=== PATIENT | male | born 1940 | race Caucasian/White ===

== ENCOUNTER 2021-08-18 08:57 | Outpatient (REF) | payer MEDICARE, BC, SELFPAY ==
[2021-08-18 09:53] LABS: C Reactive Protein 7.84 mg/dL (< or = 0.50)
[2021-08-18 10:13] LABS: Erythrocyte Sedimentation Rate 101 MM/HR (0-15)
== END 2021-08-18 08:58 | disposition home or self-care (01) ==
LOC: HO.LAB 08:57
PROVIDERS: PCP Internal Medicine; Visit Provider Internal Medicine Rheumatology
DX: M35.3 Polymyalgia rheumatica (principal)
CPT/HCPCS: 36415; 85652; 86140

== ENCOUNTER 2021-08-19 12:01 | Outpatient (REF) | payer MEDICARE, BC, SELFPAY ==
[2021-08-19 14:04] LABS: Basophils Percent Auto 0.4 % (0-2); Eosinophils Absolute Auto 0.1 X10*3/uL (0.0-0.4); Eosinophils Percent Auto 1.8 % (0-4); Hematocrit 29.4 % (42.0-52.0); Hemoglobin 9.6 g/dl (14.0-18.0); Imm Gran Abs Auto 0.03 X10*3/uL (0.00-0.03); Imm Gran Pct Auto 0.7 % (0.0-0.4); Lymphocytes Absolute Auto 1.1 X10*3/uL (1.2-4.9); Lymphocytes Percent Auto 24.4 % (20-40); MANUAL DIFF FLAG SCAN; Mean Corpuscular HGB Conc 32.7 g/dl (31.0-36.0); Mean Corpuscular Hemoglobin 30.6 pg (27.0-33.0); Mean Corpuscular Volume 93.6 fL (80.0-98.0); Mean Platelet Volume 9.4 fL (9.4-12.4); Monocytes Absolute Auto 1.1 X10*3/uL (0.1-1.2); Monocytes Percent Auto 23.3 % (2-11); Neutrophils Absolute Auto 2.3 x10*3/uL (2.0-8.3); Neutrophils Percent Auto 49.4 % (45-73); Platelet Count 230 X10*3/uL (160-400); Red Blood Count 3.14 X10*6/uL (4.60-5.80); Red Cell Distribution Width 15.2 % (11.0-16.0); SCAN SMEAR FLAG 1; White Blood Count 4.6 X10*3/uL (4.8-10.8)
[2021-08-19 14:24] LABS: SLIDE REVIEW VERIFIED
[2021-08-22 22:17] LABS: Prot Elec - Albumin 3.8 g/dL (3.8-4.8); Prot Elec - Alpha1 0.4 g/dL (0.2-0.3); Prot Elec - Alpha2 1.2 g/dL (0.5-0.9); Prot Elec - Beta 1 0.4 g/dL (0.4-0.6); Prot Elec - Beta 2 0.3 g/dL (0.2-0.5); Prot Elec - Gamma 1.1 g/dL (0.8-1.7); Prot Elec - Total Protein 7.2 g/dL (6.1-8.1)
== END 2021-08-19 12:02 | disposition home or self-care (01) ==
LOC: HO.HMGCLDS 12:01
PROVIDERS: Visit Provider Internal Medicine Rheumatology
DX: M35.3 Polymyalgia rheumatica (principal); R70.0 Elevated erythrocyte sedimentation rate; Z86.2 Personal history of diseases of the blood and blood-forming organs and certain disorders involving the immune mechanism
CPT/HCPCS: 36415; 84165; 85025

== ENCOUNTER → 2021-11-28 10:25 | Outpatient (BNVA) | payer MEDICARE, BC, SELFPAY | PROVIDERS: PCP Internal Medicine; Visit Provider Internal Medicine Rheumatology | DX: M35.3 Polymyalgia rheumatica (principal); D64.9 Anemia, unspecified; N18.30 Chronic kidney disease, stage 3 unspecified; R70.0 Elevated erythrocyte sedimentation rate | CPT/HCPCS: 99212 ==

== ENCOUNTER → 2022-02-23 09:35 | Outpatient (BNVA) | payer MEDICARE, BC, SELFPAY | PROVIDERS: PCP Internal Medicine; Visit Provider Internal Medicine Rheumatology | DX: M35.3 Polymyalgia rheumatica (principal) | CPT/HCPCS: 99212 ==

== ENCOUNTER 2022-05-15 09:59 | Outpatient (REF) | payer MEDICARE, BC, SELFPAY ==
[2022-05-15 11:32] LABS: MANUAL DIFF FLAG NO
[2022-05-15 11:59] LABS: Basophils Percent Auto 0.5 % (0-2); Eosinophils Absolute Auto 0.1 X10*3/uL (0.0-0.4); Hemoglobin 9.1 g/dl (14.0-18.0); Imm Gran Abs Auto 0.06 X10*3/uL (0.00-0.03); Imm Gran Pct Auto 1.5 % (0.0-0.4); Lymphocytes Absolute Auto 1.3 X10*3/uL (1.2-4.9); Lymphocytes Percent Auto 32.1 % (20-40); Mean Corpuscular HGB Conc 32.5 g/dl (31.0-36.0); Mean Corpuscular Hemoglobin 32.2 pg (27.0-33.0); Mean Corpuscular Volume 98.9 fL (80.0-98.0); Mean Platelet Volume 8.9 fL (9.4-12.4); Monocytes Absolute Auto 0.8 X10*3/uL (0.1-1.2); Monocytes Percent Auto 18.9 % (2-11); Neutrophils Absolute Auto 1.8 x10*3/uL (2.0-8.3); Platelet Count 213 X10*3/uL (160-400); Red Blood Count 2.83 X10*6/uL (4.60-5.80); Red Cell Distribution Width 14.6 % (11.0-16.0)
[2022-05-15 12:04] LABS: C Reactive Protein 1.22 mg/dL (< or = 0.50)
[2022-05-15 12:48] LABS: Erythrocyte Sedimentation Rate 106 MM/HR (0-15)
== END 2022-05-15 10:00 | disposition home or self-care (01) ==
LOC: HO.HMGCLDS 09:59
PROVIDERS: PCP Internal Medicine; Visit Provider Internal Medicine Rheumatology
DX: M35.3 Polymyalgia rheumatica (principal); Z79.899 Other long term (current) drug therapy
CPT/HCPCS: 36415; 85025; 85652; 86140

== ENCOUNTER → 2022-05-17 07:45 | Outpatient (BNVA) | payer MEDICARE, BC, SELFPAY | PROVIDERS: PCP Internal Medicine; Visit Provider Internal Medicine Rheumatology | DX: D64.9 Anemia, unspecified (principal); M35.3 Polymyalgia rheumatica; N18.30 Chronic kidney disease, stage 3 unspecified | CPT/HCPCS: 99212 ==

== ENCOUNTER 2022-10-05 11:14 | Outpatient (REF) | payer MEDICARE, BC, SELFPAY ==
[2022-10-05 13:18] LABS: MANUAL DIFF FLAG NO
[2022-10-05 13:53] LABS: Basophils Percent Auto 0.5 % (0-2); Eosinophils Absolute Auto 0.1 X10*3/uL (0.0-0.4); Eosinophils Percent Auto 1.7 % (0-4); Hematocrit 22.7 % (42.0-52.0); Hemoglobin 7.2 g/dl (14.0-18.0); Imm Gran Abs Auto 0.06 X10*3/uL (0.00-0.03); Imm Gran Pct Auto 1.5 % (0.0-0.4); Mean Corpuscular HGB Conc 31.7 g/dl (31.0-36.0); Mean Corpuscular Hemoglobin 32.7 pg (27.0-33.0); Mean Corpuscular Volume 103.2 fL (80.0-98.0); Mean Platelet Volume 9.3 fL (9.4-12.4); Monocytes Absolute Auto 0.8 X10*3/uL (0.1-1.2); Monocytes Percent Auto 19.1 % (2-11); Neutrophils Absolute Auto 2.2 x10*3/uL (2.0-8.3); Neutrophils Percent Auto 53.2 % (45-73); Platelet Count 270 X10*3/uL (160-400); Red Cell Distribution Width 16.1 % (11.0-16.0); White Blood Count 4.1 X10*3/uL (4.8-10.8)
[2022-10-05 14:17] LABS: C Reactive Protein 4.82 mg/dL (< or = 0.50); Estimated Glomerular Filt Rate 26
[2022-10-05 20:35] LABS: Erythrocyte Sedimentation Rate > 140 MM/HR (0-15)
== END 2022-10-05 11:15 | disposition home or self-care (01) ==
LOC: HO.HMGCLDS 11:14
PROVIDERS: PCP Internal Medicine; Visit Provider Internal Medicine Rheumatology
DX: M35.3 Polymyalgia rheumatica (principal); D64.9 Anemia, unspecified
CPT/HCPCS: 36415; 82565; 85025; 85652; 86140

== ENCOUNTER 2022-10-10 08:11 | Outpatient (AMB) | payer MEDICARE, BC, SELFPAY ==
--- NOTE | 2022-10-10 08:14 | A.OFFVIS_ITS ---
Intake Vital Signs 10/10/22 08:17 Height 5 ft 5 in Weight 180 lb 15.992 oz BMI 30.1 BP 130/62 Blood Pressure Location Lt brachial Position Sitting Pulse 64 Pulse Source Auscultation Temp 97.4 F Temp Source Skin Pulse Oximetry (%) 97 Oxygen Delivery Method Room Air Intake Visit Reasons: pmr Intake Note: Here for PMR follow up. Coal Deliverer Required: No Accompanied by: Self / Same As Patient Allergies No Known Allergies Allergy (Verified 10/10/22 08:14) HPI HPI Comments History of Present Illness Details The patient returns for evaluation of his PMR. He remains at 2 mg daily prednisone. He says he is doing fairly well with no headache, jaw claudication, shoulder pain or hip pain. He does not have any episodic visual disturbance. We did call him last week when his hemoglobin came back at 7.2. This was a decline from his previous 9.9 level. He had just seen the epidemiology investigator and it sounds like there were plans were made to treat him with erythropoietin because of his anemia. His iron levels have been normal. He is feeling somewhat tired but not overwhelmingly so. There has been no shortness of breath, palpitations, ankle edema or chest pain. He did have some crampy abdominal pain and diarrhea on vacation to [place]. He thinks he was exposed t o some agent when he had oysters. His son, felt ill also after the same meal. He says that his GI symptoms are improving at this point. He did see GI and is taking some pantoprazole. [facility] Surgical History History of carpal tunnel release Social History Household Members: Spouse Housing: House Are you a primary youth care specialist to a significant other at home: No Do you presently have visiting nurse or other home services: No 75 years or older and lives alone: No Patient Tobacco Use Status: Former Tobacco user Years Smoked: Quit 35 years ago e-Cigarette/Vaping Use: Never Used service: No Current occupational status: retired Review of Systems Const Details: Negative for appetite change, weight change, fever, chills, malaise and fatigue Eyes Details: Negative for vision change, dry eyes,headaches and dizziness Card Details: Negative chest pain, edema and syncope Resp Details: Negative for SOB, cough and wheezing GI Details: Episode of crampy abdominal pain and loose stools has subsided. Negative indigestion/heartburn, nausea, bowel changes, her constipation and bloody stool. Endo Details: Negative for polyuria and polydypsia Fernando/Lymph Details: Negative for excessive bruising or bleeding. Physical Exam Vital Signs: Last Vital Signs Temp 97.4 F 10/10/22 08:17 Pulse 64 10/10/22 08:17 BP 130/62 10/10/22 08:17 Pulse Ox 97 10/10/22 08:17 Oxygen Delivery Method Room Air 10/10/22 08:17 BMI result Body Mass Index 30.1 APPEARANCE: Patient in no acute distress EYES no redness, pupils equal and reactive to light, eyelids normal. No temporal artery tenderness, redness or swelling. Abdomen: Normal bowel sounds. No organomegaly or tenderness. EXTREMITIES:? No edema, no calf tenderness, normal peripheral pulses. JOINT EXAM:?? Cervical Spine:.? Some?decrease in motion?without pain; no tenderness. Thoracic Spine:.? No scoliosis.? No tenderness on palpation. Lumbar Spine:.? Alignment normal.? Full range of motion without pain, no tenderness. Chest Wall:.? No tenderness, swelling, increased warmth or erythema. Hands:.? Normal pain-free range of motion without tenderness, swelling, increased warmth or erythema. Able to make a full fist and has a good leasing associate strength. Wrists:.? Flexion and extension limited at about 60 degrees but without pain.? No tenderness.? No swelling, increased warmth or erythema. Elbows:. Normal pain-free range of motion without tenderness, swelling, increased warmth or erythema. Shoulders:.? Left:? Abduction is limited to about 150 degrees but rotation seems normal.? No pain with motion, tenderness, swelling or weakness.? Right:? Full range of motion without pain. No tenderness, weakness, swelling, increased warmth or erythema. Hips:.? Full range of motion without pain. Hip bursa:.? No tenderness. Knees:.?? Normal pain-free range of motion with slight patellofemoral crepitus but no effusion, tenderness, swelling, increased warmth or erythema.? There is no effusion or crepitation Ankles:? Normal pain-free range of motion without tenderness, swelling, increased warmth or erythema. ? Results Reviewed Results Reviewed: Laboratory Tests 05/15/22 10/05/22 10/05/22 10:04 11:21 11:21 WBC 4.1 L Hgb 9.1 L 7.2 L D Plt Count 270 D ESR > 140 H Creatinine C-Reactive Protein 10/05/22 11:21 WBC Hgb Plt Count ESR Creatinine 2.36 H C-Reactive Protein 4.82 H Assessment & Plan Assessment & Plan (1) Anemia: Comment: IRon B12 levels OK. ? anemia of chronic disease Code(s): D64.9 - Anemia, unspecified (2) CKD (chronic kidney disease) stage 3, GFR 30-59 ml/min: Comment: with proteinuria Code(s): N18.30 - Chronic kidney disease, stage 3 unspecified (3) Polymyalgia rheumatica: Comment: onset 2019? Code(s): M35.3 - Polymyalgia rheumatica Plan PMR with no apparent symptoms at this very low dose of prednisone. The acute phase reactants remain elevated, perhaps even higher because of the recent GI symptoms he had at [facility]. Alternatively that could be some pathological process in the bone marrow that is causing his significant anemia but most likely it is at least partially contributed by his CKD. We will stay with the current dose of prednisone for now. He is to follow-up as planned with Nephrology and Hematology. Coding Level of Care Code Est Pt Level 3 (94691) Diagnoses Anemia D64.9 CKD (chronic kidney disease) stage 3, GFR 30-59 ml/min N18.30 Polymyalgia rheumatica M35.3
[2022-10-10 08:17] VITALS: BP 130/62; PULSE 64; TEMP 36.3; O2SAT 97; BMI 30.1
== END 2022-10-10 09:25 | disposition home or self-care (01) ==
PROVIDERS: PCP Internal Medicine; Visit Provider Internal Medicine Rheumatology
DX: D64.9 Anemia, unspecified (principal); N18.30 Chronic kidney disease, stage 3 unspecified; M35.3 Polymyalgia rheumatica
CPT/HCPCS: 99213

== ENCOUNTER → 2022-10-10 08:11 | Outpatient (BNVA) | payer MEDICARE, BC, SELFPAY | PROVIDERS: PCP Internal Medicine; Visit Provider Internal Medicine Rheumatology | DX: M35.3 Polymyalgia rheumatica (principal); N18.30 Chronic kidney disease, stage 3 unspecified; D64.9 Anemia, unspecified | CPT/HCPCS: 99212 ==

== ENCOUNTER 2023-04-20 10:36 | Outpatient (AMB) | payer MEDICARE, BC, SELFPAY ==
--- NOTE | 2023-04-20 10:43 | MHC.OFFVIS ---
Intake Vital Signs 04/20/23 10:50 Height 5 ft 5 in Weight 177 lb 7.554 oz BMI 29.5 BP 140/60 H Blood Pressure Location Rt brachial Position Sitting Pulse 54 Pulse Source Pulse Oximeter Temp 97 F Temp Source Skin Pulse Oximetry (%) 97 Oxygen Delivery Method Room Air Intake Visit Reasons: PMR Intake Note: Last seen by Dr. Howard on 10/10/22. Presents today for follow up. Sound Assistant Required: No Accompanied by: Self / Same As Patient Allergies No Known Allergies Allergy (Verified 10/10/22 08:14) HPI HPI Comments History of Present Illness Details Mr. Stewart 82-year-old male returns for evaluation of his PMR. He remains at 2 mg daily prednisone. He says he is doing fairly well with no headache, jaw claudication, shoulder pain or hip pain except recently with the rainy weather he has some discomfort in the right shoulder joint. He does not have any episodic visual disturbance. He has not seen the belt loop maker but he sees the vault worker who treats him with erythropoietin because of his anemia. He has received 4 injections so far. He is feeling somewhat tired but not overwhelmingly so. There has been no shortness of breath, palpitations, ankle edema or chest pain. The patient denies any personal history of cancer. [facility] Medical History (Updated 04/20/23 @ 12:05 by W[facility]Y [facility] History of gout CKD (chronic kidney disease) stage 4, GFR 15-29 ml/min Surgical History History of carpal tunnel release Social History Household Members: Spouse Housing: House Are you a primary health care marketing manager to a significant other at home: No Do you presently have visiting nurse or other home services: No 75 years or older and lives alone: No Patient Tobacco Use Status: Former Tobacco user Years Smoked: Quit 35 years ago e-Cigarette/Vaping Use: Never Used service: No Current occupational status: retired Review of Systems Const All systems reviewed & are unremarkable except as noted in HPI and below Physical Exam Vital Signs: Last Vital Signs Temp 97 F 04/20/23 10:50 Pulse 54 04/20/23 10:50 BP 140/60 H 04/20/23 10:50 Pulse Ox 97 04/20/23 10:50 Oxygen Delivery Method Room Air 04/20/23 10:50 BMI result Body Mass Index 29.5 Results Reviewed Results Reviewed: Laboratory Tests 05/15/22 10/05/22 10/05/22 10:04 11:21 11:21 WBC 4.1 L Hgb 9.1 L 7.2 L D Plt Count 270 D ESR > 140 H Creatinine C-Reactive Protein 10/05/22 11:21 WBC Hgb Plt Count ESR Creatinine 2.36 H C-Reactive Protein 4.82 H Assessment & Plan Assessment & Plan (1) Anemia: Comment: IRon B12 levels OK. ? anemia of chronic disease Code(s): D64.9 - Anemia, unspecified Qualifiers: Anemia type: due to chronic kidney disease Chronic kidney disease stage: stage 4 (severe) Qualified Code(s): N18.4 - Chronic kidney disease, stage 4 (severe); D63.1 - Anemia in chronic kidney disease (2) Polymyalgia rheumatica: Comment: onset 2019? Code(s): M35.3 - Polymyalgia rheumatica (3) CKD (chronic kidney disease) stage 4, GFR 15-29 ml/min: Code(s): N18.4 - Chronic kidney disease, stage 4 (severe) (4) History of gout: Code(s): Z87.39 - Personal history of other diseases of the musculoskeletal system and connective tissue Plan #PMR:PMR with no apparent symptoms at this very low dose of prednisone 2mg per day. Patient is not symptomatic for PMR. The acute phase reactants remain markedly elevated. Perhaps because of his chronic anemia, which most likely, or at least partially, contributed by his CKD. We will stay with the current dose of prednisone for now. Labs were ordered on 04/16/2023 with the goal to have them before the appointment. Reminded patient to get those done. #Hx of Gout: Patient is on allopurinol 200 mg q.d.. Says he has not had a gout flare in years. He did discuss with his primary care coleman he taking it still and per patient his PCP says to continue. #Anemia/CKD: Given his chronic kidney disease and anemia I would recommend to discontinue his allopurinol or at least to reduce the dose. He is to continue with Nephrology thank you I spent 35 minutes reviewing history, evaluating patient and documenting. Coding Level of Care Code Est Pt Level 3 (13368) Diagnoses Anemia due to stage 4 chronic kidney disease N18.4; D63.1 Anemia type: due to chronic kidney disease Chronic kidney disease stage: stage 4 (severe) Polymyalgia rheumatica M35.3 CKD (chronic kidney disease) stage 4, GFR 15-29 ml/min N18.4 History of gout Z87.39
[2023-04-20 10:50] VITALS: BP 140/60; PULSE 54; TEMP 36.1; O2SAT 97; BMI 29.5
== END 2023-04-20 11:09 | disposition home or self-care (01) ==
PROVIDERS: PCP Internal Medicine; Visit Provider Nurse Practitioner Family
DX: N18.4 Chronic kidney disease, stage 4 (severe) (principal); D63.1 Anemia in chronic kidney disease; M35.3 Polymyalgia rheumatica; Z87.39 Personal history of other diseases of the musculoskeletal system and connective tissue
CPT/HCPCS: 99213

== ENCOUNTER → 2023-04-20 10:36 | Outpatient (BNVA) | payer MEDICARE, BC, SELFPAY | PROVIDERS: PCP Internal Medicine; Visit Provider Nurse Practitioner Family | DX: N18.4 Chronic kidney disease, stage 4 (severe) (principal); D63.1 Anemia in chronic kidney disease; M35.3 Polymyalgia rheumatica; Z87.39 Personal history of other diseases of the musculoskeletal system and connective tissue | CPT/HCPCS: 99212 ==

== ENCOUNTER 2023-04-23 09:48 | Outpatient (REF) | payer MEDICARE, BC, SELFPAY ==
[2023-04-23 13:23] LABS: Rheumatoid Factor 66.4 IU/mL (<15.0)
[2023-04-23 13:26] LABS: Basophils Percent Auto 0.6 % (0-2); Eosinophils Absolute Auto 0.1 X10*3/uL (0.0-0.4); Eosinophils Percent Auto 1.6 % (0-4); Hemoglobin 8.8 g/dl (14.0-18.0); Imm Gran Abs Auto 0.04 X10*3/uL (0.00-0.03); Imm Gran Pct Auto 1.3 % (0.0-0.4); Lymphocytes Absolute Auto 1.1 X10*3/uL (1.2-4.9); Lymphocytes Percent Auto 35.8 % (20-40); MANUAL DIFF FLAG SCAN; Mean Corpuscular HGB Conc 32.6 g/dl (31.0-36.0); Mean Corpuscular Volume 104.2 fL (80.0-98.0); Mean Platelet Volume 9.7 fL (9.4-12.4); Monocytes Absolute Auto 0.7 X10*3/uL (0.1-1.2); Monocytes Percent Auto 22.4 % (2-11); Neutrophils Absolute Auto 1.2 x10*3/uL (2.0-8.3); Neutrophils Percent Auto 38.3 % (45-73); Platelet Count 198 X10*3/uL (160-400); Red Blood Count 2.59 X10*6/uL (4.60-5.80); Red Cell Distribution Width 15.4 % (11.0-16.0); SCAN SMEAR FLAG 1; White Blood Count 3.1 X10*3/uL (4.8-10.8)
[2023-04-23 13:38] LABS: C Reactive Protein 3.84 mg/dL (< or = 0.50); Uric Acid 4.5 mg/dL (3.4-7.0)
[2023-04-23 13:48] LABS: SLIDE REVIEW VERIFIED
[2023-04-23 14:15] LABS: Erythrocyte Sedimentation Rate 109 MM/HR (0-15)
[2023-04-24 21:34] LABS: Prot Elec - Albumin 3.7 g/dL (3.8-4.8); Prot Elec - Alpha1 0.4 g/dL (0.2-0.3); Prot Elec - Beta 1 0.4 g/dL (0.4-0.6); Prot Elec - Beta 2 0.3 g/dL (0.2-0.5); Prot Elec - Gamma 1.6 g/dL (0.8-1.7); Prot Elec - Total Protein 7.3 g/dL (6.1-8.1)
[2023-04-25 11:23] LABS: Cyclic Citrullinated Peptide <16 UNITS
[2023-04-25 22:19] LABS: IgA 168 mg/dL (70-320); IgG 1260 mg/dL (600-1540); IgM 841 mg/dL (50-300)
== END 2023-04-23 09:49 | disposition home or self-care (01) ==
LOC: HO.HMGCLDS 09:48
PROVIDERS: PCP Internal Medicine; Visit Provider Nurse Practitioner Family
DX: M35.3 Polymyalgia rheumatica (principal); R70.0 Elevated erythrocyte sedimentation rate
CPT/HCPCS: 36415; 82784; 84165; 84550; 85025; 85652; 86140; 86200; 86431

== ENCOUNTER 2023-12-20 09:36 | Outpatient (AMB) | payer MEDICARE, BC, SELFPAY ==
[2023-12-20 09:41] VITALS: BP 130/72; PULSE 80; O2SAT 98; BMI 31.9
--- NOTE | 2023-12-20 09:41 | A.OFFVIS_ITS ---
Vital Signs 12/20/23 09:41 Height 5 ft 5 in Weight 192 lb BMI 31.9 BP 130/72 Blood Pressure Location Lt brachial Position Sitting Pulse 80 Pulse Source Pulse Oximeter Pulse Oximetry (%) 98 Oxygen Delivery Method Room Air Intake Visit Reasons: PMR. Intake Note: Patient presents for follow up on PMR. He was last seen in the office on 04/20/23 by Ibeth Barnes. Patient is requesting refill of Prednisone at this time. Allergies No Known Allergies Allergy (Verified 12/20/23 09:43) Medication List - Last Reconciled 12/20/23 by Bonita Moya MD acetaminophen (Tylenol Extra Strength) 1,000 mg PO BEDTIME PRN allopurinol 100 mg PO BID amlodipine 5 mg PO DAILY atenolol 25 mg PO DAILY ferrous sulfate 325 mg PO DAILY glipizide 5 mg PO .dinner glipizide ER 0 mg PO lisinopril 20 mg PO DAILY metformin ER 1,000 mg PO BID ondansetron HCl 4 mg PO Q8H PRN pantoprazole 40 mg PO DAILY prednisone 2 mg (2 x 1 mg) PO DAILY sitagliptin phosphate (Januvia) 100 mg PO DAILY tamsulosin 0.4 mg PO BEDTIME HPI Comments Details: Patient is an 83-year-old male with hypertension, diabetes, BPH, PMR on chronic prednisone and gout who presents for follow-up Interval History: Patient last seen 04/20/2023 with Ibeth Barnes. At that time patient was stable. There was concern about his anemia. No changes made to his prednisone Today patient reports continue resolution of his shoulder stiffness. Follows with renal for EPO shots weekly for his anemia. Denies headaches, jaw claudication, temporal artery tenderness, vision changes Rheumatologic History: Diagnosed with PMR in 2019 and started on prednisone with complete resolution of symptoms. Has been slowly tapering prednisone over the past several years. No relapse in symptoms. Non crystal proven gout on allopurinol Current Rheumatology Medication(s): Allopurinol 100mg bid Prednisone 2mg daily PFSH Medical History (Updated 12/20/23 @ 10:37 by Bonita Moya MD) Gout Cardiac murmur CKD (chronic kidney disease) stage 4, GFR 15-29 ml/min Surgical History History of carpal tunnel release Social History Household Members: Spouse Housing: House Are you a primary healthcare manager to a significant other at home: No Do you presently have visiting nurse or other home services: No Patient Tobacco Use Status: Former Tobacco user Years Smoked: Quit 35 years ago e-Cigarette/Vaping Use: Never Used service: No Current occupational status: retired Review of Systems Const Details: Review of Systems Constitutional: Denies fever, chills, weight loss ENT: Denies vision changes, eye pain or eye redness, dental caries, dry mouth GI: Denies nausea, vomiting, diarrhea, abdominal pain, change in BM Pulm: Denies SOB, VARGAS, hemoptysis, wheezing Cards: Denies chest pain, palpitations Skin: Denies Raynaud's, rash, nail changes, photosensitivity, BETTING AGENCY MANAGER: Denies headaches, weakness, paresthesias, recurrent falls MSK: as per HPI All other systems reviewed and are unremarkable except noted above Physical Exam Vital Signs: Last Vital Signs Pulse 80 12/20/23 09:41 BP 130/72 12/20/23 09:41 Pulse Ox 98 12/20/23 09:41 Oxygen Delivery Method Room Air 12/20/23 09:41 BMI result Body Mass Index 31.9 Physical Examination CONSTITUITIONAL Patient alert and cooperative. Well appearing and in no apparent painful distress HEENT Conjunctiva and sclera clear. ?Pupils equal round and reactive to light. ?No lymphadenopathy. ?Normal dentition. No oral or nasal ulcers noted. No temporal artery tenderness noted CHEST/RESPIRATORY SYSTEM Normal respiratory effort and able to speak in complete sentences. ?Clear to auscultation bilaterally. ?No crackles, rales, rhonchi, wheezes heard. CARDIAC SYSTEM Regular rate irregularly irregular rhythm. Systolic murmur 3/6 heard best at the left sternal border MSK Hands: ?Good journeyman press operator strength bilaterally - 5/5. ?No deformities noted. ?No synovitis noted to the MCPs, PIPs or DIPs. ?No tenderness to palpation of these joints. Wrists: ?Full range of motion at the wrists without pain. ?No tenderness to palpation or synovitis noted to the wrists. Elbows: Full range of motion without pain. No tenderness, weakness, swelling, increased warmth or erythema. Shoulders: Full range of motion without pain. No tenderness, weakness, swelling, increased warmth or erythema. Hips: Full range of motion without pain. Hip bursa: No tenderness to palpation Knees: ?Full range of motion. ?No tenderness, swelling, increased warmth or erythema.?No effusion or crepitations Ankles: Full range of motion. ?No tenderness, swelling, increased warmth or erythema.? Feet: ?Negative squeeze test. ?No tenderness to palpation or swelling of the MTPs. Tender points:??No tenderness to palpation of the neck, shoulders, chest, elbows, hips, buttocks or knees. SKIN Skin intact without rashes. Assessment & Plan Assessment & Plan (1) Polymyalgia rheumatica: Comment: onset 2019? Prednisone since 2019 Code(s): M35.3 - Polymyalgia rheumatica Category: Medical Plan: #PMR Patient with PMR currently is in remission. We will decrease his prednisone to 1 mg and follow him up in 3 months. No signs or symptoms concerning for GCA (2) ESR raised: Code(s): R70.0 - Elevated erythrocyte sedimentation rate Category: Medical Plan: #Elevated ESR and CRP Patient with elevated ESR and CRP that has been persistent despite resolution of his PMR symptoms. He reports having follow up with the distillery worker general in the past but I am unable to see this workup. Concerned that he may monoclonal gamm opathy. 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 He has a history of following up with Rudy Mckinley distillery worker general but his anemia in the past has been attributed to his CKD. He started EPO injections in the spring of this year but the anemia related to chronic kidney disease is normocytic and his anemia is macrocytic with a normal B12 which is concerning for MDS. We will reach out to Rudy Mckinley to discuss the case. (4) Cardiac murmur: Code(s): R01.1 - Cardiac murmur, unspecified Category: Medical Plan: #Systolic Murmur Patient has a systolic murmur on examination. As well as irregular heartbeat. Send patient to get a EKG and he says he has a scheduled for an echo next month. Plan I spent 45 minutes reviewing the record and labs, seeing the patient, discussing the treatment plan, contacting Rudy Mckinley Manager Cardiac Cath and discussing the case, and documenting in the medical record ? For next visit: * Follow-up prednisone decreased Orders: Orders Cyclic Citrullinated Peptide Today D63.1 - Anemia in chronic kidney disease, M35.3 - Polymyalgia rheumatica, N18.30 - Chronic kidney disease, stage 3 unspecified, N18.4 - Chronic kidney disease, stage 4 (severe) Complete Blood Count Auto Diff Today D63.1 - Anemia in chronic kidney disease, M35.3 - Polymyalgia rheumatica, N18.30 - Chronic kidney disease, stage 3 unspecified, N18.4 - Chronic kidney disease, stage 4 (severe) Complement C3 Today D63.1 - Anemia in chronic kidney disease, M35.3 - Polymyalgia rheumatica, N18.30 - Chronic kidney disease, stage 3 unspecified, N18.4 - Chronic kidney disease, stage 4 (severe) Anti Extractable Nuclear Ag Today D63.1 - Anemia in chronic kidney disease, M 35.3 - Polymyalgia rheumatica, N18.30 - Chronic kidney disease, stage 3 unspecified, N18.4 - Chronic kidney disease, stage 4 (severe) Erythrocyte Sedimentation Rate Today D63.1 - Anemia in chronic kidney disease, M35.3 - Polymyalgia rheumatica, N18.30 - Chronic kidney disease, stage 3 unspecified, N18.4 - Chronic kidney disease, stage 4 (severe) Protein Electrophoresis,Ran Ur Today D63.1 - Anemia in chronic kidney disease, M35.3 - Polymyalgia rheumatica, N18.30 - Chronic kidney disease, stage 3 unspecified, N18.4 - Chronic kidney disease, stage 4 (severe) Uric Acid Today D63.1 - Anemia in chronic kidney disease, M35.3 - Polymyalgia rheumatica, N18.30 - Chronic kidney disease, stage 3 unspecified, N18.4 - Chron ic kidney disease, stage 4 (severe) Folate Today D63.1 - Anemia in chronic kidney disease, M35.3 - Polymyalgia rheumatica, N18.30 - Chronic kidney disease, stage 3 unspecified, N18.4 - Chronic kidney disease, stage 4 (severe) Vitamin D 25-OH (D2 and D3) Today D63.1 - Anemia in chronic kidney disease, M35.3 - Polymyalgia rheumatica, N18.30 - Chronic kidney disease, stage 3 unspecified, N18.4 - Chronic kidney disease, stage 4 (severe) ECG 12 lead EKG Today R00.9 - Unspecified abnormalities of heart beat Rheumatoid Factor Today D63.1 - Anemia in chronic kidney disease, M35.3 - Polymyalgia rheumatica, N18.30 - Chronic kidney disease, stage 3 unspecified, N18.4 - Chronic kidney disease, stage 4 (severe) Complement C4 Today D63.1 - Anemia in chronic kidney disease, M35.3 - Polymyalgia rheumatica, N18.30 - Chronic kidney disease, stage 3 unspecified, N18.4 - Chronic kidney disease, stage 4 (severe) MILO Reflex Titer and Pattern Today D63.1 - Anemia in chronic kidney disease, M35.3 - Polymyalgia rheumatica, N18.30 - Chronic kidney disease, stage 3 unspecified, N18.4 - Chronic kidney disease, stage 4 (severe) Comprehensive Met. Panel Today D63.1 - Anemia in chronic kidney disease, M35.3 - Polymyalgia rheumatica, N18.30 - Chronic kidney disease, stage 3 unspecified, N18.4 - Chronic kidney disease, stage 4 (severe) C Reactive Protein Today D63.1 - Anemia in chronic kidney disease, M35.3 - Polymyalgia rheumatica, N18.30 - Chronic kidney disease, stage 3 unspecified, N18.4 - Chronic kidney disease, stage 4 (severe) Protein Electrophoresis, Serum Today D63.1 - Anemia in chronic kidney disease, M35.3 - Polymyalgia rheumatica, N18.30 - Chronic kidney disease, stage 3 unspecified, N18.4 - Chronic kidney disease, stage 4 (severe) Immunofixation, Random Urine Today D63.1 - Anemia in chronic kidney disease, M35.3 - Polymyalgia rheumatica, N18.30 - Chronic kidney disease, stage 3 unspecified, N18.4 - Chronic kidney disease, stage 4 (severe) Immunoglobulins,IgG IgA IgM Today D63.1 - Anemia in chronic kidney disease, M35.3 - Polymyalgia rheumatica, N18.30 - Chronic kidney disease, stage 3 u nspecified, N18.4 - Chronic kidney disease, stage 4 (severe) Immunofixation Pnl, Serum Today D63.1 - Anemia in chronic kidney disease, M35.3 - Polymyalgia rheumatica, N18.30 - Chronic kidney disease, stage 3 unspecified, N18.4 - Chronic kidney disease, stage 4 (severe) Vitamin B12 Today D63.1 - Anemia in chronic kidney disease, M35.3 - Polymyalgia rheumatica, N18.30 - Chronic kidney disease, stage 3 unspecified, N18.4 - Chronic kidney disease, stage 4 (severe) Medications: New allopurinol 100 mg PO BID 180 tabs 2RF M10.9 - Gout, unspecified Changed From prednisone 2 mg (2 x 1 mg) PO DAILY 60 tabs 2RF M35.3 - Polymyalgia rheumatica To prednisone 1 mg PO DAILY 90 days 90 tabs 1RF M35.3 - Polymyalgia rheumatica Coding Level of Care Code Est Pt Level 5 (19718) Complex EM visit Add On G2211 Diagnoses Polymyalgia rheumatica M35.3 ESR raised R70.0 Bicytopenia D75.89 Cardiac murmur R01.1
== END 2023-12-20 10:30 | disposition home or self-care (01) ==
LOC: HO.RHE 09:37
PROVIDERS: PCP Internal Medicine; Visit Provider Student in an Organized Health Care Education/Training Program
DX: M35.3 Polymyalgia rheumatica (principal); R70.0 Elevated erythrocyte sedimentation rate; D75.89 Other specified diseases of blood and blood-forming organs; R01.1 Cardiac murmur, unspecified
CPT/HCPCS: 99215; G2211

== ENCOUNTER → 2023-12-20 09:36 | Outpatient (BNVA) | payer MEDICARE, BC, SELFPAY | PROVIDERS: PCP Internal Medicine; Visit Provider Student in an Organized Health Care Education/Training Program ==

== ENCOUNTER 2023-12-20 10:27 | Outpatient (REF) | payer MEDICARE, BC, SELFPAY ==
[2023-12-20 10:53] LABS: Basophils Percent Auto 0.3 % (0-2); Eosinophils Percent Auto 0.6 % (0-4); Hematocrit 26.2 % (42.0-52.0); Imm Gran Abs Auto 0.09 X10*3/uL (0.00-0.03); Imm Gran Pct Auto 2.8 % (0.0-0.4); MANUAL DIFF FLAG SCAN; Mean Corpuscular HGB Conc 34.4 g/dl (31.0-36.0); Mean Corpuscular Hemoglobin 35.2 pg (27.0-33.0); Mean Corpuscular Volume 102.3 fL (80.0-98.0); Mean Platelet Volume 8.8 fL (9.4-12.4); Monocytes Absolute Auto 0.8 X10*3/uL (0.1-1.2); Monocytes Percent Auto 24.2 % (2-11); Neutrophils Absolute Auto 1.3 x10*3/uL (2.0-8.3); Neutrophils Percent Auto 40.1 % (45-73); Platelet Count 114 X10*3/uL (160-400); Red Blood Count 2.56 X10*6/uL (4.60-5.80); Red Cell Distribution Width 14.8 % (11.0-16.0); SCAN SMEAR FLAG 1; White Blood Count 3.2 X10*3/uL (4.8-10.8)
[2023-12-20 11:24] LABS: SLIDE REVIEW VERIFIED
[2023-12-20 11:33] LABS: Erythrocyte Sedimentation Rate 119 MM/HR (0-15)
[2023-12-20 12:07] LABS: Alanine Aminotransferase 25 U/L (0-40); Albumin Level 4.1 g/dL (3.5-5.0); Alkaline Phosphatase 68 U/L (39-117); Anion Gap 15 (12-20); Aspartate Amino Transferase 25 U/L (5-37); Bilirubin Total 0.4 mg/dL (0.0-1.0); Blood Urea Nitrogen 46 mg/dL (9-16); C Reactive Protein 0.91 mg/dL (< or = 0.50); Calcium 9.5 mg/dL (8.4-10.2); Carbon Dioxide 21 mmol/L (22-29); Chloride 110 mmol/L (96-108); Estimated Glomerular Filt Rate 29; Glucose Random 182 mg/dL (60-115); Potassium 4.5 mmol/L (3.3-5.1); Sodium 141 mmol/L (135-145); Total Protein 7.8 g/dL (6.5-8.0); Uric Acid 5.8 mg/dL (3.4-7.0)
[2023-12-20 12:14] LABS: Rheumatoid Factor 18.1 IU/mL (<15.0)
[2023-12-20 12:49] LABS: Folate > 20.0 ng/mL (> or = 4.0); Vitamin B12 343 pg/mL (200-900)
[2023-12-21 12:37] LABS: PES - Abn Protein Band 1 0.2 g/dL (NONE DETECTED); Prot Elec - Albumin 4.1 g/dL (3.8-4.8); Prot Elec - Alpha1 0.3 g/dL (0.2-0.3); Prot Elec - Alpha2 0.8 g/dL (0.5-0.9); Prot Elec - Beta 1 0.4 g/dL (0.4-0.6); Prot Elec - Beta 2 0.3 g/dL (0.2-0.5); Prot Elec - Gamma 1.5 g/dL (0.8-1.7); Prot Elec - Total Protein 7.4 g/dL (6.1-8.1)
[2023-12-21 14:33] LABS: Complement C3 89 mg/dL
[2023-12-21 20:49] LABS: SM/Ribonucleoprotein Ab <1.0 NEG AI (<1.0 NEG); Smith Protein <1.0 NEG AI (<1.0 NEG)
[2023-12-21 21:32] LABS: IgA 155 mg/dL (70-320); IgG 1036 mg/dL (600-1540); IgM 1159 mg/dL (50-300)
[2023-12-24 16:48] LABS: Vitamin D 25-OH, D2 <4 ng/mL; Vitamin D 25-OH, D3 28 ng/mL; Vitamin D 25-OH, Total 28 ng/mL (30-100)
[2023-12-25 09:19] LABS: Cyclic Citrullinated Peptide <16 UNITS
[2023-12-25 11:33] LABS: Anti Nuclear Antibody Screen NEGATIVE (NEGATIVE)
== END 2023-12-20 10:28 | disposition home or self-care (01) ==
LOC: HO.10HDL 10:27
PROVIDERS: Visit Provider Student in an Organized Health Care Education/Training Program
DX: M35.3 Polymyalgia rheumatica (principal); N18.30 Chronic kidney disease, stage 3 unspecified; N18.4 Chronic kidney disease, stage 4 (severe); D63.1 Anemia in chronic kidney disease; R70.0 Elevated erythrocyte sedimentation rate; R01.1 Cardiac murmur, unspecified; D75.89 Other specified diseases of blood and blood-forming organs; M10.9 Gout, unspecified; Z79.899 Other long term (current) drug therapy
CPT/HCPCS: 36415; 80053; 82306; 82607; 82746; 82784; 84165; 84550; 85025; 85652; 86038; 86140; 86160; 86200; 86235; 86334; 86431; 99212

== ENCOUNTER 2024-04-18 10:53 | Outpatient (AMB) | payer MEDICARE, BC, SELFPAY ==
--- NOTE | 2024-04-18 11:00 | MHC.OFFVIS ---
Vital Signs 04/18/24 11:03 Height 5 ft 5 in Weight 190 lb 14.725 oz BMI 31.8 BP 150/80 H Blood Pressure Location Lt brachial Position Sitting Pulse 67 Pulse Source Pulse Oximeter Pulse Oximetry (%) 96 Oxygen Delivery Method Room Air Intake Visit Reasons: follow up Intake Note: Patient presents for follow up. Allergies No Known Allergies Allergy (Verified 04/18/24 11:03) Medication List - Last Reconciled 04/18/24 by Bonita Moya MD acetaminophen (Tylenol Extra Strength) 1,000 mg PO BEDTIME PRN allopurinol 100 mg PO BID amlodipine 5 mg PO DAILY atenolol 25 mg PO DAILY ferrous sulfate 325 mg PO DAILY glipizide 5 mg PO .dinner glipizide ER 0 mg PO lisinopril 20 mg PO DAILY metformin ER 1,000 mg PO BID ondansetron HCl 4 mg PO Q8H PRN pantoprazole 40 mg PO DAILY prednisone 1 mg PO DAILY 90 days sitagliptin phosphate (Januvia) 100 mg PO DAILY tamsulosin 0.4 mg PO BEDTIME HPI Comments Details: Patient is an 83-year-old male with hypertension, diabetes, BPH, PMR on chronic prednisone and gout who presents for follow-up Interval History: Patient last seen 12/20/2023 with me. At that time he was stable with respect to his PMR symptoms and had not had any flares of his gout. His follow up blood work was concerning for pancytopenia with hemoglobin 9, white blood cell count 3.2, platelets 114. I also sent serum protein electrophoresis and immunofixation which showed a faint monoclonal band. I informed the patient of his concerning blood results and told him that he would need to see a cassandra consultant. The referral was placed to his cassandra consultant Dr. Rudy Mckinley and patient ensured that he would follow up. Today patient states that he made the appointment however did not go because he had COVID and did not make a follow up appointment for the appointment that he missed. When I discussed this with him he continues to iterate that he is currently following up with his early childhood education worker for his blood count and he is getting weekly shots and so he does not see the need to follow up with the cassandra consultant. I again told him that the shots that he is receiving from the hematologists are likely EPO shots and they are only for his anemia it would not explain his low white blood cell count or his low platelets. It would also not explain the abnormal protein that is in his blood. With respect to his PMR symptoms patient notes that he has been feeling a little bit more achy on the 1 mg pill compared to the 2 mg pill however it has not been persistent. No signs or symptoms of GCA No gout flares Rheumatologic History: Diagnosed with PMR in 2019 and started on prednisone with complete resolution of symptoms. Has been slowly tapering prednisone over the past several years. No relapse in symptoms. Non crystal proven gout on allopurinol Current Rheumatology Medication(s): Allopurinol 100mg bid Prednisone 1mg daily [facility] Medical History (Updated 12/20/23 @ 13:55 by Bonita Moya MD) Pancytopenia Gout Cardiac murmur CKD (chronic kidney disease) stage 4, GFR 15-29 ml/min Surgical History History of carpal tunnel release Social History Household Members: Spouse Housing: House Are you a primary healthcare representative to a significant other at home: No Do you presently have visiting nurse or other home services: No 75 years or older and lives alone: No Patient Tobacco Use Status: Former Tobacco user Years Smoked: Quit 35 years ago e-Cigarette/Vaping Use: Never Used service: No Current occupational status: retired Review of Systems Const Details: Review of Systems Constitutional: Denies fever, chills, weight loss ENT: Denies vision changes, eye pain or eye redness, dental caries, dry mouth GI: Denies nausea, vomiting, diarrhea, abdominal pain, change in BM Pulm: Denies SOB, VARGAS, hemoptysis, wheezing Cards: Denies chest pain, palpitations Skin: Denies Raynaud's, rash, nail changes, photosensitivity, COMPUTATIONAL LINGUIST: Denies headaches, weakness, paresthesias, recurrent falls MSK: as per HPI All other systems reviewed and are unremarkable except noted above Physical Exam Vital Signs: Last Vital Signs Pulse 67 04/18/24 11:03 BP 150/80 H 04/18/24 11:03 Pulse Ox 96 04/18/24 11:03 Oxygen Delivery Method Room Air 04/18/24 11:03 BMI result Body Mass Index 31.8 Physical Examination CONSTITUITIONAL Patient alert and cooperative. Well appearing and in no apparent painful distress HEENT Conjunctiva and sclera clear. ?Pupils equal round and reactive to light. ?No lymphadenopathy. ?Normal dentition. No oral or nasal ulcers noted. No temporal artery tenderness noted. Mucous membranes are extremely pale and patient looks slightly icteric CHEST/RESPIRATORY SYSTEM Normal respiratory effort and able to speak in complete sentences. ?Clear to auscultation bilaterally. ?No crackles, rales, rhonchi, wheezes heard. CARDIAC SYSTEM Regular rate irregularly irregular rhythm. Systolic murmur 3/6 heard best at the left sternal border MSK Hands: ?Good foot miter operator strength bilaterally - 5/5. ?No deformities noted. ?No synovitis noted to the MCPs, PIPs or DIPs. ?No tenderness to palpation of these joints. Wrists: ?Full range of motion at the wrists without pain. ?No tenderness to palpation or synovitis noted to the wrists. Elbows: Full range of motion without pain. No tenderness, weakness, swelling, increased warmth or erythema. Shoulders: Full range of motion without pain. No tenderness, weakness, swelling, increased warmth or erythema. Hips: Full range of motion without pain. Hip bursa: No tenderness to palpation Knees: ?Full range of motion. ?No tenderness, swelling, increased warmth or erythema.?No effusion or crepitations Ankles: Full range of motion. ?No tenderness, swelling, increased warmth or erythema.? Feet: ?Negative squeeze test. ?No tenderness to palpation or swelling of the MTPs. Tender points:??No tenderness to palpation of the neck, shoulders, chest, elbows, hips, buttocks or knees. SKIN Skin intact without rashes. Results Reviewed Results Reviewed: Laboratory Tests 12/20/23 10:30 WBC 3.2 L RBC 2.56 L Hgb 9.0 L Hct 26.2 L MCH 35.2 H Plt Count 114 L D ESR 119 H Sodium 141 Potassium 4.5 Chloride 110 H Carbon Dioxide 21 L BUN 46 H Creatinine 2.18 H Uric Acid 5.8 Total Bilirubin 0.4 AST 25 ALT 25 Alkaline Phosphatase 68 C-Reactive Protein 0.91 H Total Protein 7.8 Total Protein (PEP) 7.4 Abnorm Protein Band 1 0.2 H 25-OH Vitamin D Total 28 L ALEXA Interpretation Faint IgM lambda monoclonal band present. Assessment & Plan Assessment & Plan (1) Pancytopenia: Code(s): D61.818 - Other pancytopenia Category: Medical Plan: #Pancytopenia with concern for monoclonal gammopathy Patient is an 83-year-old gentleman with pancytopenia. Further blood results showed a faint IgM lambda monoclonal band. There is concern for monoclonal gammopathy with this patient. I expressed to this patient my concern about his blood results. However the patient continues to behave in a trivial manner to my requests for him to follow up with his cassandra consultant. He continues to reiterate that his early childhood education worker is giving him weekly shots and that should take care of everything furthermore he says that he follow up with his early childhood education worker about a week ago and the early childhood education worker did not see anything to him about his blood work or anything that potentially concerns him. At this point this would be my 3rd time speaking to this patient about this. The 1st time was during the appointment the 2nd time after the appointment with a phone call and now today is the 3rd time. I am concerned that he has an underlying untreated monoclonal gammopathy which could progress to something worse. He is very pale on examination and it was likely that his anemia is worsening. I again expressed my concern for the patient but the patient continues to believe that this is a trivial matter despite my urging things. Plan - Contacted Dr. Rudy Mckinley's office and informed them of my concern and they said they would reach out to the patient and schedule a follow up - Blood work today: CBC, CMP, ESR, CRP, urine and blood immunofixation - RTC 4 months (2) Polymyalgia rheumatica: Comment: onset 2019? Prednisone since 2019 Code(s): M35.3 - Polymyalgia rheumatica Category: Medical Plan: #PMR Patient with PMR currently in remission Decreased prednisone to 1mg at last visit and patient is noting some increase in symptoms Given the concern for underlying monoclonal gammopathy and his underlying CKD I will hold off on escalation of treatment at this time Plan - Continue prednisone 1mg (3) senior care (current) use of systemic steroids: Code(s): Z79.52 - senior care (current) use of systemic steroids Plan: #Long-term Use of Steroids Discussed with patient the risks and benefits of steroid for managing the rheumatic condition Benefits include: - Reduced pain, improved mobility, increased participation in activities, and decreased progression of disease Risks include: - GI upset, potential ultrasound worsening or formation (especially in patients > 65 years old), elevated blood pressure/worsening hypertension, elevated blood sugar/worsening diabetes control, worsening of bone density, elevated lipids/worsening triglycerides, cataract formation, weight gain Recommended using proton pump inhibitors (PPIs) for the duration of steroid use to reduce the risk of gastric ulcers and vitamin-D daily to reduce the risk of osteoporosis Labs checked: ?A1c, T spot, hepatitis-B and C serologies Pneumocystis jiroveci prophylaxis: ?Patient with risk factors including steroids greater than 50 mg for more than 30 days, age greater than 60 years, and lung involvement from underlying rheumatic disease requires prophylaxis and will be given so Plan I spent 58 minutes reviewing the record and labs, taking a history, examining the patient, discussing the treatment plan, contacting Rudy Mckinley [facility] [place] and documenting in the medical record Orders: Orders Comprehensive Met. Panel Today D61.818 - Other pancytopenia, M35.3 - Polymyalgia rheumatica, Z79.52 - senior care (current) use of systemic steroids Erythrocyte Sedimentation Rate Today D61.818 - Other pancytopenia, M35.3 - Polymyalgia rheumatica, Z79.52 - senior care (current) use of systemic steroids Protein Electrophoresis, Serum Today D61.818 - Other pancytopenia, M35.3 - Polymyalgia rheumatica, Z79.52 - director long term care (current) use of systemic steroids Immunofixation, Random Urine Today D61.818 - Other pancytopenia, M35.3 - Polymyalgia rheumatica, Z79.52 - director long term care (current) use of systemic steroids Complete Blood Count Auto Diff Today D61.818 - Other pancytopenia, M35.3 - Polymyalgia rheumatica, Z79.52 - director long term care (current) use of systemic steroids C Reactive Protein Today D61.818 - Other pancytopenia, M35.3 - Polymyalgia rheumatica, Z79.52 - director long term care (current) use of systemic steroids Protein Electrophoresis,Ran Ur Today D61.818 - Other pancytopenia, M35.3 - Polymyalgia rheumatica, Z79.52 - director long term care (current) use of systemic steroids Immunofixation Pnl, Serum Today D61.818 - Other pancytopenia, M35.3 - Polymyalgia rheumatica, Z79.52 - director long term care (current) use of systemic steroids Coding Level of Care Code Est Pt Level 5 (18989) Complex EM visit Add On G2211 Diagnoses Pancytopenia D61.818 Polymyalgia rheumatica M35.3 senior care (current) use of systemic steroids Z79.52
[2024-04-18 11:03] VITALS: BP 150/80; PULSE 67; O2SAT 96; BMI 31.8
--- OUTSIDE RECORDS SUMMARY | 2024-04-18 12:27 | XMS_ITS | Clinical Summary ---
Author Organization [facility] Address [address] [facility] [address] [place] [address] Phone Care Team Providers Care Drill Sharpener Name Role Phone Margaret Camarena MD Primary Care Provider Allergies No known active allergies Medications allopurinol (ZYLOPRIM) 100 MG tablet Take 100 mg by mouth in the morning and 100 mg in the evening. 10/18/2021 Active ferrous sulfate 325 (65 Fe) MG tablet Take 1 tablet by mouth 1 (one) time each day 08/23/2021 Active glipiZIDE (GLUCOTROL XL) 5 MG 24 hr tablet Take 15 mg by mouth 1 (one) time each day 2 tablets in the am 1 tab in the pm 09/10/2021 Active lisinopril 20 MG tablet Take 20 mg by mouth 1 (one) time each day 09/10/2021 Active predniSONE (DELTASONE) 1 MG tablet Take 2 mg by mouth 1 (one) time each day 10/03/2021 Active Januvia 100 MG tablet Take 100 mg by mouth 1 (one) time each day 10/13/2021 Active famotidine (PEPCID) 20 MG tablet 01/29/2023 Active folic acid (FOLVITE) 1 MG tablet Take 1,000 mcg by mouth 1 (one) time each day 01/23/2023 Active amLODIPine (NORVASC) 5 MG tablet TAKE 1 TABLET BY MOUTH 1 TIME EACH DAY. 90 tablet 1 01/30/2024 Active Hospital, Clinic, or Other Facility Administered Medication Ordered Dose Route Frequency Start Date End Date Status Epoetin Lino-epbx solution 20,000 UnitsIndications:Anemia in chronic kidney disease 93976 Units IJ Every 14 days 03/11/2024 Active Epoetin Lino-epbx solution 20,000 UnitsIndications:Anemia in chronic kidney disease 63234 Units IJ Once 03/25/2024 03/25/2024 Ended Epoetin Lino-epbx solution 20,000 UnitsIndications:Chroni c kidney disease, stage 4 (severe) (HCC),Anemia in chronic kidney disease 80221 Units IJ Once 04/16/2024 04/16/2024 Ended Active Problems Problem Noted Date Diagnosed Date Microalbuminuria 01/14/2024 Chronic kidney disease, stage 4 (severe) 024 Overview (05/23/2023): 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 Recheck Renal panel to re-evaluate Anemia 02/10/2020 Overview (05/23/2023): Epo and iron deficiency combo Target Hgb 10-12 Assessment & Plan (05/23/2023 11:09 PM EDT): Hgb gradually improving, most recently 9.4 today Taking oral iron with adequate iron stores Received Retacrit 20,000U SQ today from our nurses Will continue to evaluate monthly, hold Epo when Hgb >10 Type 1 diabetes mellitus 06/27/2018 Hypertension 07/03/2005 Overview (05/23/2023): Follow low NA diet Avoid NSAIDs/OTC Decongestant medications Target Blood pressure 120/80 Exercise, Healthy BMI Assessment & Plan (05/23/2023 1:13 PM EDT): Blood pressure better controlled Newly on resumed Amlodipine 2.5 mg QD x2 weeks Continues to take Atenolol 25 mg QD and Lisinopril 20 mg QD No medication changes made today, cont the same for now Will monitor and re-evaluate need for Amlodipine dose increase to 5 mg Renal stone 07/03/2005 Overview (10/24/2021): Overview: 05/17 Resolved Problems Problem Noted Date Diagnosed Date Resolved Date Polymyalgia rheumatica 05/28/202110/24 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/31/2019 0 10/24/2021 Degeneration of cervical intervertebral disc 0 10/24/2021 Obesity 12/06/2015 10/24/2021 Nuclear sclerosis 06/10/2014 10/24/2021 Overview (10/24/2021): Overview: Dr Christine note 03/18/13 Benign prostatic hyperplasia 05/29/2013 10/24/2021 Gout 04/20/2009 10/24/2021 Mixed hyperlipidemia 05/17/2006 022 Carpal tunnel syndrome 07/03/200510/24 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 07/03/2005 10/24/2021 Encounters Date Type Department Care Team Description 04/16/2024 8:45 AM EST Office Visit [facility] [address] [phone] Chanell Ireland ARNP Chronic kidney disease, stage 4 (severe) (HCC) (Primary Dx); Hypertension; Anemia in chronic kidney disease 03/24/2024 3:00 PM EST Office Visit [facility] [address] [phone] Kole Mora MD Anemia in chronic kidney disease (Primary Dx); Chronic kidney disease, stage 4 (severe) (HCC); Hypertension; Obstructive uropathy, not otherwise specified; Microalbuminuria 03/11/2024 9:30 AM EST Clinical Support [facility] [address] [phone] Anemia in chronic kidney disease (Primary Dx) 02/25/2024 9:15 AM EST Office Visit [facility] [address] [facility] [address] [place] [phone] Chanlel Ireland ARNP Chronic kidney disease, stage 4 (severe) (HCC) (Primary Dx); Hypertension; Anemia in chronic kidney disease; Microalbuminuria 02/17/2024 Office Communication [facility] [address] [place] [phone] Manuel Tomlin MD 02/11/2024 3:15 PM EST Office Visit [facility] [place] [address] [facility] [address] [place] [phone] Kole Mora MD Chronic kidney disease, stage 4 (severe) (HCC) (Primary Dx); Hypertension; Anemia in chronic kidney disease; Microalbuminuria 01/30/2024 Refill [facility] [address] [place] [phone] Kole Mora MD from Last 3 Months Immunizations Name Administration Dates Next Due Influenza, Unspecified 12/26/2022,2021,11/09/2020,02/11/2020,02/12,01/14/2015,12/18/2013,10/28/2012,01/28/20 12,12/07/2010,11/02/2008,12/09/2007,01/23/2006,1 03/16/2004 Pfizer SARS-COV-2 12/08/2020,04/12/2020,03/18/19 21 Pneumococcal Polysaccharide 01/23/2006 SARS-CoV-2, Unspecified 12/06/2021 Td, Unspecified 03/21/2004 Tdap 07/27/2014 Family History Medical History Relation Comments Heart attack Father Cancer Mother Diabetes Mother Relation Status Comments Father Mother Social History Tobacco Use Types Packs/Day Years Used Date Smoking Tobacco: Former Cigarettes Passive Smoke Exposure: Never Smokeless Tobacco: Never Tobacco Cessation:Counseling Given: Not Answered Alcohol Use Standard Drinks/Week Comments Not Currently 0 (1 standard drink = 0.6 oz pur e alcohol) Sex and Gender Information Value Date Recorded Sex Assigned at Not on file Legal Sex Male 2:24 PM EDT Gender Identity Not on file Sexual Orientation Not on file Last Filed Vital Signs Vital Sign Reading Time Taken Comments Blood Pressure 142/62 04/16/2024 8:57 AM EST Pulse 51 04/16/2024 8:34 AM EST Temperature - - Respiratory Rate - - Oxygen Saturation 97% 04/16/2024 8:34 AM EST Inhaled Oxygen Concentration - - Weight 85.3 kg (188 lb) 04/16/2024 8:34 AM EST Height 165.1 cm (5' 5 ) 03/02/2023 9:38 AM EST Body Mass Index 31.28 03/02/2023 9:38 AM EST Plan of Treatment Upcoming Encounters Date Type Department Care Team (Late st Contact Info) Description 05/15/2024 1:00 PM EDT Clinical Support [facility] [address] [place] [phone] 07/17/2024 2:30 PM EDT Office Visit [facility] [address] [phone] Kole Mora MD [address] [phone] Health Maintenance Due Date Last Done Comments Pneumococcal Vaccine: 65+ Years (2 of 2 - PCV) 01/23/2007 01/23/2006 Diabetes: Ophthalmology Exam 08/08/2021 Diabetes: Pedal Pulse Checked 08/08/2021 Diabetes: Sensory Foot Exam 08/08/2021 Diabetes: Visual Foot Exam 08/08/2021 Influenza Vaccine (#1) 2023 3, 01/12/2022, 11/09/2020, Additional history exists Diabetes: Hemoglobin A1C 01/17/2024 10/18/2023 Hepatitis B Vaccine Aged Out No longe r eligible based on patient's age to complete this topic Procedures Procedure Name Priority Date/Time Associated Diagnosis Comments IMMATURE CELLS Routine 04/11/2024 10:11 AM EST CBC AND DIFFERENTIAL Routine 04/11/2024 10:11 AM EST Chronic kidney disease, stage 4 (severe) (HCC) IRON PANEL (FE, TIBC, TSAT) Routine 04/11/2024 10:11 AM EST Chronic kidney disease, stage 4 (severe) (HCC) FERRITIN Routine 04/11/2024 10:11 AM EST Chronic kidney disease, stage 4 (severe) (HCC) RENAL FUNCTION PANEL Routine 04/11/2024 10:11 AM EST Chronic kidney disease, stage 4 (severe) (HCC) POCT HEMOGLOBIN Routine 03/24/2024 2:55 PM EST Anemia in chronic kidney disease POCT HEMOGLOBIN Routine 03/11/2024 9:35 AM EST Anemia in chronic kidney disease POCT HEMOGLOBIN Routine 02/25/2024 9:48 AM EST Anemia in chronic kidney disease CBC Routine 02/20/2024 10:29 AM EST Chronic kidney disease, stage 4 (severe) (HCC) from Last 3 Months Results * (ABNORMAL) Immature Cells (04/11/2024 10:11 AM EST) Myelocytes Relative 1(H) 0 - 0 % [facility] 04/11/2024 10:1 1 AM EST 04/11/2024 us Kole Mora MD LAB BLOOD ORDERABLES Final Resul t [facility] [place] [place] [address] [place] [phone] * Iron Panel (Fe, TIBC, TSAT) (04/11/2024 10:11 AM EST) TIBC 271 250 - 450 ug/dL [facility] UIBC 190 111 - 343 ug/dL [facility] [place] Iron 81 38 - 169 ug/dL [facility] [place] Iron Saturation (TSat) 30 15 - 55 % [facility] Blood (Blood, Venous) 04/11/2024 10:11 AM EST 04/11/2024 Kole Mora MD LAB BLOOD ORDERABLES Final Resul t [facility] [place] [address] [place] [phone] * (ABNORMAL) CBC and differential (04/11/2024 10:11 AM EST) WBC 2.9(L) 3.4 - 10.8 x10E3/uL [facility] [facility] RBC 2.66(LL) 4.14 - 5.80 x10E6/uL [facility] Comment: Macrocytes present. Anisocytosis present. Hemoglobin 9.0(L) 13.0 - 17.7 g/dL [facility] Hematocrit 27.5(L) 37.5 - 51.0 % [facility] MCV 103(H) 79 - 97 fL [facility] [facility] MCH 33.8(H) 26.6 - 33.0 pg [facility] [facility] MCHC 32.7 31.5 - 35.7 g/dL [facility] [facility] RDW 14.3 11.6 - 15.4 % [facility] Platelets 167 150 - 450 x10E3/uL [facility] [facility] Neutrophils Relative 29 Not Estab. % [facility] Lymphocytes Relative 44 Not Estab. % [facility] [facility] Monocytes 23 Not Estab. % [facility] [facility] Eosinophils Relative 2 Not Estab. % [facility] [facility] Basophils Relative 1 Not Estab. % [facility] [facility] Immature Cells Note [facility] [place] Neutrophils Absolute 0.8(L) 1.4 - 7.0 x10E3/uL [facility] Lymphocytes Absolute 1.3 0.7 - 3.1 x10E3/uL [facility] Monocytes Absolute 0.7 0.1 - 0.9 x10E3/uL [facility] [facility] Eosinophils Absolute 0.1 0.0 - 0.4 x10E3/uL [facility] [facility] Basophils Absolute 0.0 0.0 - 0.2 x10E3/uL [facility] Comment: Note: [facility] [facility] Comment:Manual differential was performed. Blood (Blood, Venous) 04/11/2024 10:11 AM EST 04/11/2024 us Kole Mora MD LAB BLOOD ORDERABLES Final Resul t [facility] [place] [address] [place] [phone] * Ferritin (04/11/2024 10:11 AM EST) Ferritin 389 30 - 400 ng/mL [facility] [facility] Blood (Blood, Venous) 04/11/2024 10:11 AM EST 04/11/2024 us Kole Mora MD LAB BLOOD ORDERABLES Final Resul t [facility] [address] [place] [phone] * (ABNORMAL) Renal funtion panel (04/11/2024 10:11 AM EST) Glucose 191(H) 70 - 99 mg/dL [facility] [place] BUN 42(H) 8 - 27 mg/dL [facility] [place] Creatinine 2.09(H) 0.76 - 1.27 mg/dL [facility] [place] eGFR CKD-EPI CR 2020 31(L) >59 mL/min/1.7 3 [facility] [facility] BUN/Creatinine Ratio 20 10 - 24 [facility] [facility] Sodium 141 134 - 144 mmol/L [facility] [facility] Potassium 4.7 3.5 - 5.2 mmol/L [facility] [facility] Chloride 107(H) 96 - 106 mmol/L [facility] [facility] Bicarbonate (CO2) 18(L) 20 - 29 mmol/L [facility] [facility] Calcium 8.6 8.6 - 10.2 mg/dL [facility] [facility] Albumin 4.3 3.7 - 4.7 g/dL [facility] [facility] Phosphorus 3.1 2.8 - 4.1 mg/dL [facility] [facility] Blood (Blood, Venous) 04/11/2024 10:11 AM EST 04/11/2024 us Kole Mora MD LAB BLOOD ORDERABLES [facility]ul t [facility] [place] [address] [place] [phone] * POCT hemoglobin (03/24/2024 2:55 PM EST) Only the most recent of3 resultswithin the time period is included. Hemoglobin 7.7 Blood Capillary 03/24/2024 2 :55 PM EST Kole Mora MD POINT OF CARE TEST ORDERABLES Fi nal Result * (ABNORMAL) CBC without diff (02/20/2024 10:29 AM EST) WBC 2.7(L) 3.4 - 10.8 x10E3/uL [facility] [facility] RBC 2.57(LL) 4.14 - 5.80 x10E6/uL [facility] [place] Hemoglobin 8.9(L) 13.0 - 17.7 g/dL [facility] Hematocrit 26.9(L) 37.5 - 51.0 % [facility] [facility] MCV 105(H) 79 - 97 fL [facility] MCH 34.6(H) 26.6 - 33.0 pg [facility] MCHC 33.1 31.5 - 35.7 g/dL [facility] [facility] RDW 14.0 11.6 - 15.4 % [facility] [facility] Platelets 131(L) 150 - 450 x10E3/uL [facility] [facility] Blood (Blood, Venous) 02/20/2024 10:29 AM EST 02/20/2024 Kole Mora MD LAB BLOOD ORDERABLES Final Resul t [facility] [address] [place] [phone] from Last 3 Months Insurance MEDICARE [facility] MEDICARE [facility] Care Teams Drill Sharpener Relationship Specialty Start Date End Date Margaret Camarena MD [address] [place] [phone] PCP - General Internal Medicine 10/24/21
--- OUTSIDE RECORDS SUMMARY | 2024-04-18 12:27 | XMS_ITS | Clinical Summary ---
Author Organization [facility] Address [address] [place] [address] Phone Care Team Providers Care Cleaning Supervisor Name Role Phone Margaret Camarena MD Primary Care Provider [phone] Allergies No known active allergies Medications SITagliptin phosphate (Januvia) 100 mg tablet Take 1 tablet (100 mg total) by mouth 1 (one) time each day. 12/13/19 24 Active tamsulosin (FLOMAX) 0.4 mg 24 hr capsule TAKE 1 CAPSULE BY MOUTH 30 MINUTES AFTER THE SAME MEAL EVERY DAY 12/04/19 24 Active glipiZIDE (GLUCOTROL XL) 5 mg 24 hr tablet TAKE 2 TABLETS BY MOUTH WITH BREAKFAST AND 1 WITH DINNER 10/12/19 24 Active allopurinoL (ZYLOPRIM) 100 mg tablet Take 1 tablet (100 mg total) by mouth 2 (two) times a day. 10/11/19 24 Active lisinopriL (PRINIVIL,ZEST RIL) 20 mg tablet Take 1 tablet (20 mg total) by mouth 1 (one) time each day. 10/11/19 24 Active pantoprazole (PROTONIX) 40 mg EC tablet Take 1 tablet (40 mg total) by mouth 1 (one) time each day. 09/10/19 24 Active famotidine (PEPCID) 20 mg tablet Take 1 tablet (20 mg total) by mouth 2 (two) times a day. 07/30/19 24 Active predniSONE (DELTASONE) 1 mg tablet Take 2 tabs in the morning. 05/15/19 24 Active amLODIPine (NORVASC) 2.5 mg tablet Take 1 tablet (2.5 mg total) by mouth 1 (one) time each day. 05/15/19 24 Active OneTouch Ultra Test test strip Use to check blood sugar once daily 06/12/19 19 Active ONETOUCH DELICA LANCETS [facility] ONETOUCH DELICA LANCETS FINE Mis- Une one lancet to tesr sugar once daily 06/12/19 19 Active blood-glucose meter [facility] [place] Blood Glucose Monitoring Suppl (ONE TOUCH ULTRA SYSTEM KIT) W/DEVICE Kit- Test blood sugars twice daily 07/29/19 15 Active folic acid (FOLVITE) 1 mg tablet TAKE 1 TABLET BY MOUTH EVERY DAY 90 tablet 1 02/04/20 24 Active ferrous sulfate 325 mg (65 mg elemental iron) tablet Take 1 tablet (325 mg total) by mouth 1 (one) time each day. 90 tablet 1 04/17/19 25 Active ferrous sulfate 325 mg (65 mg elemental iron) tablet Take 1 tablet (325 mg total) by mouth 1 (one) time each day. 11/01/19 24 025 Discontinued Active Problems Problem Noted Date Diagnosed Date Fibromyalgia 01/02/2024 Peptic ulcer 01/02/2024 Polymyalgia rheumatica 07/08/2020 Normocytic anemia 01/05/2020 Overview (01/02/2024): Iron studies, B12 studies and follow-up with hematology 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/31/2019 DDD (degenerative disc disease), cervical 2019 Primary osteoarthritis of left shoulder 10/31/19 Obesity 12/06/2015 Nuclear sclerosis 06/10/2014 Overview (01/02/2024): Dr Christine note 03/18/13 Proteinuria 06/10/2014 Type 2 diabetes mellitus with cataract 5 Benign prostatic hyperplasia 05/29/2013 CKD (chronic kidney disease) stage 3, GFR 30-59 ml/min 04/24/2012 Back pain 04/07/2010 Overview (01/02/2024): DJD of the back Illness 04/07/2010 Overview (01/02/2024): Type 2 diabetes, uncontrolled, with renal manifestation Last Assessment & Plan: Checking Your Blood Sugars Please check your blood sugars every day. Please check your sugars at the following times of day: before breakfast, before dinner and before bedtime Your Blood Sugar Goals Pre Meal: 90-130 2 hours after meals: 110-160 Bedtime: 110-150 Use the Results ?? Bring your glucometer to every appointment ?? Write your fingerstick blood sugars down on a log sheet or record book. Bring them to your appointment ?? Look for patterns in the numbers. The results help you and your provider make decisions about your diabetes treatment plan. Your Results and your Goals Your Result / Date of Completion Your Goal / How Often to Assess Component Value Date HGBA1C 8.4 11/28/2013 Less than 7% --- 2-4 times per year BP Readings from Last 1 Encounters: 12/01/13 150/72 Less than 140/90 --- once per year Component Value Date MALBCR 158 05/28/2013 Less than 30 --- once per year Component Value Date LDL 57 05/28/2013 Less than 100 --- once per year Wt Readings from Last 1 Encounters: 12/01/13 206 lb 8 oz (93.668 kg) Your goal weight by next visit: 200lb --- reassess 2-4 times a year Health Maintenance Due Topic Date Due Adult Immunization: Tetanus Diptheria And Pertussis (Tdap) 06/16/1959 Adult Immunization: Zostavax For Patients Over 60 1999 Diabetes: Annual Foot Exam 08/24/2011 Diabetes: Annual Care Plan 05/17/2013 Flu Shot 10/13/2013 Your Action Plan Check blood glucose as directed and write down all results. Increase physical activity Contact me if you experience any barriers to care such as inability to purchase your medication, difficulty getting to your appointments or difficulty understanding your care plan get a second opinion with an endocrine specialist When to Call your Healthcare Provider If your blood sugar falls below 70 and you do not know why or you become unconscious If you are sick and unable to take liquids because or nausea or vomiting If you have a fever over 101 If your blood sugar is 300 or higher on greater than 3 separate occasions during the same week If you are just unsure what to do Educational Resources [place] [employer] (www.diabetes.org) Centers for Disease Control and Prevention (www.cdc.gov/diabetes) This care plan was created in collaboration with Roberto Sifuentes on 12/01/2013 Gout 04/20/2009 Mixed hyperlipidemia 05/17/2006 Calculus of kidney 07/03/2005 Overview (01/02/2024): US 05/17 Carpal tunnel syndrome 07/03/2005 Overview (01/02/2024): Last Assessment & Plan: The patient has bilateral carpal tunnel syndrome confirmed on nerve testing. Symptoms have been longstanding with recent very severe exacerbation. The severity based on the nerve testing is severe . His symptoms also are severe. We discussed treatment options of nonoperative approach which would mostly consist of what he is already doing or surgical intervention. I reviewed with the patient the nature of the surgery and the risks and benefits of the surgical procedure it and compared that to the nonoperative treatment. After this discussion the patient felt that he would like to proceed with right open carpal tunnel release. Subsequent to that he may want to get the contralateral side done but at first we will be focusing on the most symptomatic side. We will get the patient scheduled for right open carpal tunnel release to be done whenever OR time is available to us and convenient for him. He will follow up with me about 10 days postop and/or on a as needed basis. Essential hypertension, benign 07/03/2005 Known medical problems 07/03/2005 Overview (01/02/2024): Diabetes mellitus with neurological manifestations, uncontrolled Encounters Date Type Department Care Team Description 03/24/2024 Telephone Adult Medicine [address] [phone] Ailyn Durham LPN Fitting for DME (Faxed form from [employer]) 03/19/2024 Telephone [facility] Hematology Oncology [address] [place] [address] Ellen Jaimes MA 02/21/2024 9:30 AM EST Office Visit Adult Medicine [address] [phone] Margaret Camarena MD Type 2 diabetes mellitus with cataract (CMS/HCC) (Primary Dx); Obesity due to excess calories with serious comorbidity, unspecified class; Chronic gout involving toe without tophus, unspecified cause, unspecified laterality; Anemia, unspecified type; Chronic kidney disease, unspecified CKD stage; VARGAS (dyspnea on exertion) 02/20/[address] [facility] - Main Lab [address] [facility] [place] [address] Denton Mainic 02/19/2024 9:00 AM EST Ancillary Procedure [facility] [address] [place] [address] Ascending aorta dilatation (CMS/HCC) from Last 3 Months Immunizations Name Administration Dates Next Due Influenza Quadravalent, MDCK , 0.5ml, preservative free (Flucelvax) 6mo and older 02/26/2019 Influenza trivalent, 0.5mL ( Fluad) 65yo and older 10/22/2023,12/26/2022,11/09/2020,01/14,12/18/2013,10/28/2012,01/28/2012 ,12/07/2010,11/02/2008,01/23/2006,03/2004 Influenza trivalent, 0.5mL ( Fluzone High-dose) 65yo and older 10/22/2023,11/09/2020 Influenza trivalent, 0.5mL, preservative free (Fluarix; FluLaval; Fluzone) ages 6mo and older (Afluria) 3 years and older 12/09/2007,01/13/2005 Influenza trivalent, with pr eservative (Fluzone; Afluria) 6mo and older 01/12/2022,02/11/2020 Ibercheck SARS-CoV-2 COVID-19, mRNA, LNP-S, preservative free 12/07/2020,04/12/2020,03/18/2020 Pneumococcal polysaccharide 23 valent (Pneumovax 23) 2yo and older 01/23/2006 Td, Unspecified 03/21/2004 Tdap Tetanus diptheria acell ular pertussis (Boostrix; Adacel) 7yo and older 07/27/2014 Surgical History Surgery Date Site/Laterality Comments CARPAL TUNNEL RELEASE 08/31/2020 Right PROCEDURE: TX NEUROPLASTY &/TRANSPOS MEDIAN NRV CARPAL TUNNE Medical History Medical History Date Comments Essential hypertension, benign 07/03/2005 D X:Essential hypertension, benign Type II or unspecified type diabetes mellitus without mention of complication, not stated as uncontrolled 07/03/2005 DX:Type II or unspecified ty pe diabetes mellitus without mention of complication, not stated as uncontrolled Obesity, unspecified 07/03/2005 DX:Obesity, unspecified Carpal tunnel syndrome 07/03/2005 DX:Carpal tunnel syndrome Calculus of kidney 07/03/2005 DX:Calculus o f kidney Calculus of kidney 07/03/2005 DX:Calculus o f kidney; COMMENT: US 05/17 Mixed hyperlipidemia 05/17/2006 DX:Mixed hy perlipidemia Chronic renal insufficiency 05/03/2009 DX:C hronic renal insufficiency Back pain 04/07/2010 DX:Back pain DM (diabetes mellitus) type II controlled with renal manifestation ([facility]) 04/07/2010 DX:DM (diabetes mellitus) ty pe II controlled with renal manifestation ([facility]) BPH (benign prostatic hyperplasia) 05/29/2013 DX:BPH (benign prostatic hyperplasia) Dyslipidemia 04/06/2014 DX:Dyslipidemia Proteinuria 06/10/2014 DX:Proteinuria Type 2 diabetes mellitus wit h cataract ([facility]) 06/10/2014 DX:Type 2 diabetes mellitus with cataract ([facility]) Peptic ulcer DX:Peptic ulcer Esophageal reflux DX:Esophageal reflux Anemia DX:Anemia Fibromyalgia DX:Fibromyalgia Cervical spondylosis without myelopathy DX:Cervical spondylosis with out myelopathy Anemia DX:Anemia CKD (chronic kidney disease) DX: CKD (chronic kidney disease) Diabetes 1.5, 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, managed as type 2 ([facility]) PMR (polymyalgia rheumatica) ([facility]) DX:PMR (polymyalgia rheumati ca) ([facility]) Epigastric pain DX:Epigastric pa in Decreased appetite DX:Decreased appetite Fatigue DX:Fatigue Family History Medical History Relation Name Comments Heart attack Father age 77 Diabetes Mother Other: pancreactic Ca, age 52 Mother Relation Name Status Comments Father Mother Social History Tobacco Use Types Packs/Day Years Used Date Smoking Tobacco: Former Smokeless Tobacco: Never Alcohol Use Standard Drinks/Week Comments No 0 (1 standard drink = 0.6 oz pur e alcohol) Sex and Gender Information Value Date Recorded Sex Assigned at Not on file Legal Sex Male 1:12 PM EST Gender Identity Not on file Sexual Orientation Not on file Obstetrics History Last Filed Vital Signs Vital Sign Reading Time Taken Comments Blood Pressure 178/74 10/22/2023 10:11 AM EDT Pulse 74 10/22/2023 10:11 AM EDT Temperature - - Respiratory Rate - - Oxygen Saturation - - Inhaled Oxygen Concentration - - Weight 85.7 kg (189 lb) 02/19/2024 9:49 AM EST Height 167.6 cm (5' 6 ) 02/19/2024 9:49 AM EST Body Mass Index 30.51 02/19/2024 9:49 AM EST Plan of Treatment Upcoming Encounters Date Type Department Care Team (Late st Contact Info) Description 05/21/2024 10:00 AM EDT Office Visit Adult Medicine [facility] [place] [address] [place] [address] Inderjit Frey PA [address] [place] [address] Health Maintenance Due Date Last Done Comments Diabetes: Annual Retina Eye Exam 06/16/1950 Zoster Vaccines (1 of 2) 06/16/1959 Pneumococcal Vaccine: 50+ Years (2 of 2 - PCV) 01/23/2007 01/23/2006 RSV Immunization Patients 60+ Years Old (1 - 1-dose 75+ series) 06/16/2014 Depression Screening 01/19/2022 Falls Risk Assessment 01/19/2022 Social Influencers of Health Screening 01/19/2022 Medicare Annual Wellness Visit 11/02/2023 11/01/2022 Diabetes: Blood Sugar Control Test (HGBA1C) 04/16/2024 10/18/2023, 10/18/2023 DTaP,Tdap,and Td Vaccines (3 - Td or Tdap) 07/27/2024 07/27/2014, 03/21/2004 Diabetes: Annual Urine Albumin-Creatinine Ratio (uACR) 07/30/2024 07/31/2023, 07/31/2023 Diabetes: Annual Foot Exam 08/30/2024 08/31/2023 Diabetes: Annual GFR (Glomerular Filtration Rate) 10/17/2024 10/18/2023, 10/18/2023 Hypertension/CHF/CAD Annual BMP Blood Test 10/17/2024 10/18/2023, 10/18/2023 Cholesterol Screening (Lipid Panel) 10/17/2028 10/18/2023, 10/18/2023 Influenza Vaccine Completed 10/22/2023, , 12/26/2022, Additional history exists COVID-19 Vaccine Completed 01/08/2024, , 12/07/2020, Additional history exists HIB Vaccines Aged Out No longer eligi ble based on patient's age to complete this topic HPV Vaccines Aged Out No longer eligi ble based on patient's age to complete this topic Hepatitis A Vaccines Aged Out No long er eligible based on patient's age to complete this topic Hepatitis B Vaccines Aged Out No long er eligible based on patient's age to complete this topic IPV Vaccines Aged Out No longer eligi ble based on patient's age to complete this topic MMR Vaccines Aged Out No longer eligi ble based on patient's age to complete this topic Meningococcal ACWY Vaccine Aged Out N o longer eligible based on patient's age to complete this topic Meningococcal B Vacine Aged Out No lo nger eligible based on patient's age to complete this topic RSV Immunization Patients Under 20 months Aged Out No longer eligible based on patient's age to complete this topic Varicella Vaccines Aged Out No longer eligible based on patient's age to complete this topic Procedures Procedure Name Priority Date/Time Associated Diagnosis Comments POC GLUCOSE Routine 02/21/2024 9:08 AM EST Type 2 diabetes mellitus with cataract (CMS/HCC) TRANSTHORACIC ECHOCARDIOGRAM (TTE) COMPLETE Routine 02/19/2024 9:49 AM EST Ascending aorta dilatation (CMS/HCC) ANNUAL BMP BLOOD TEST Routine 10/18/2023 HEMOGLOBIN A1C Routine 10/18/2023 LIPID PANEL Routine 10/18/2023 DIABETES FOOT EXAM Routine 08/31/2023 HM URINE ALBUMIN CREATININE RATIO Routine 07/31/2023 from Last 3 Months or Most Recently Relevant to Health Maintenance Results * POC glucose manually resulted (02/21/2024 9:08 AM EST) Glucose POC 171 mg/dL Blood Capillary blood specimen / Unknown 02/21/2024 9:08 AM EST Margaret Camarena MD POINT OF CARE TEST ENTER/EDIT OR DERABLES Final Result * (ABNORMAL) TRANSTHORACIC ECHOCARDIOGRAM (TTE) COMPLETE (02/19/2024 9:49 AM EST) Left Atrium Minor Frost 6.6 cm CV PACS Left Atrium Major Frost 6.5 cm CV PACS LA Area Sys (A2C) 31 cm2 CV PACS LA Area Sys (A4C) 28 cm2 CV PACS LA Volume (BP) 104 mL CV PACS RA Area 18.3 cm2 CV PACS RA 2D Volume 51 mL CV PACS AV Mean Gradient 20 mmHg CV PACS Ao VTI 72.1 cm CV PACS AV Peak Arthur 3.0 m/s CV PACS AV Peak Gradient 36 mmHg CV PACS AV Area Continuity Equation 1.4 cm2 CV PACS AV Area Peak Velocity 1.3 cm2 CV PACS Aortic Sinus Valsalva 3.4 cm CV PACS Ascending Aorta 3.9 cm CV PACS IVSD 1.1(A) 0.6 - 1.0 cm CV PACS LVIDD 4.7 4.2 - 5.8 cm CV PACS LVIDS 3.4 2.5 - 4.0 cm CV PACS LVOT Diameter 2.0 cm CV PACS LVOT Mean Arthur 0.8 m/s CV PACS LVOT Mean Grad 3 mmHg CV PACS LVOT Peak VTI 32.2 cm CV PACS LVOT Peak Arthur 1.3 m/s CV PACS LVOT Peak Gradient 6 mmHg CV PACS LVPWD 1.0 0.6 - 1.0 cm CV PACS MV E' Tissue Velocity Lateral 6 cm/s CV PACS MV E' Tissue Velocity Septal 6 cm/s CV PACS LVOT Area 3.1 cm2 CV PACS LVOT Stroke Volume 101 mL CV PACS MV Deceleration Buchanan 2.5 m/s2 CV PACS E Wave Deceleration Time 343(A) 119 - 242 ms CV PACS MV PHT 99 ms CV PACS MV Peak A Arthur 0.90 m/s CV PACS MV Peak E Arthur 0.90 m/s CV PACS MV Mean Gradient 2 mmHg CV PACS MV VTI 40.3 cm CV PACS Mitral Valve Max Velocity 1.1 m/s CV PACS MV Peak Gradient 5 mmHg CV PACS MV Area PHT 2.2 cm2 CV PACS MV Area Continuity Equation 2.5 cm2 CV PACS PV Acceleration Time 99 ms CV PACS RV Diastolic Basal Dimension 4.4(A) 2.5 - 4.1 cm CV PACS RV S' 14 cm/s CV PACS TAPSE 26 mm CV PACS TR Peak Velocity 2.60 m/s CV PACS TR Peak Gradient 27 mmHg CV PACS E/E' Ratio Septal 15 CV PACS E/E' Ratio Averaged 15 CV PACS Relative Wall Thickness ratio 0.44(A) 0.24 - 0.42 CV PACS LVOT:AV VTI Index 0.45 CV PACS FS 28 % CV PACS LV Mass 2D 181 96 - 200 g CV PACS MV VTI:LVOT VTI ratio 1.3 CV PACS LVOT flow 251 mL/s CV PACS AV Velocity Ratio 0.42 CV PACS E/A Ratio 1.0 0.8 - 2.0 CV PACS E/E' Ratio Lateral 15 CV PACS BSA 2 m2 CV PACS LA Volume Index (BP) 51 mL/m2 CV PACS LVIDD Index 2.41 cm/m2 CV PACS LVIDS Index 1.74 cm/m2 CV PACS LV Mass Index 2D 90 50 - 102 g/m2 CV PACS LVOT Stroke Index 0 mL/m2 CV PACS RA 2D Volume Index 26 18 - 32 mL/m2 CV PACS CHRIS Index (VTI) 0.72 cm2/m2 CV PACS CHRIS Index (Pk Arthur) 0.67 cm2/m2 CV PACS Ascending Aorta Index 2.00 cm/m2 CV PACS RV Free Wall Peak S' 14 cm/s CV PACS RA Major Frost 5.2 cm CV PACS RA Major Frost Index 2.7 2.1 - 2.7 cm/m2 CV PACS AV Area 2D 1.3 cm2 CV PACS CHRIS Index (2D) 0.67 cm2/m2 CV PACS AV Area Index 0.7 CV PACS Anatomical Region Laterality Modality Ultrasound Narrative 02/19/2024 4:54 PM EST ?Left ventricle cavity size is normal. Left ventricular systolic function is in the normal range with an ejection fraction of 60-65%. ?No regional LV wall motion abnormalities noted. ?Right ventricle cavity is mildly enlarged. Right ventricular systolic function is normal. ?Aortic valve demonstrates mild stenosis. ?The ascending aorta is mildly dilated (3.9 cm). ?Compared to the prior echo from 2019 the aorta is similar in size. There is no mild aortic stenosis. Left Ventricle Left ventricle cavity size is normal. There is borderline concentric hypertrophy. Systolic function is normal with an ejection fraction of 60-65%. There are no regional LV wall motion abnormalities. Diastolic function is indeterminate. Right Ventricle Right ventricle cavity is mildly dilated. Systolic function is normal. Left Atrium Left atrium cavity is severely dilated. Right Atrium Right atrium cavity is normal. Right atrium is at upper limits of normal. IVC/SVC Inferior vena cava structure is normal. RA pressures is estimated to be 3 mmHg (IVC diameter <21 mm and decreases >50% during inspiration). Mitral Valve The leaflets are mildly thickened. There is mild annular calcification. There is trace regurgitation. There is no evidence of mitral valve stenosis. Tricuspid Valve Tricuspid valve structure is normal. There is trace regurgitation. There is no evidence of tricuspid valve stenosis. Aortic Valve The aortic valve is trileaflet. The leaflets are mildly thickened and exhibit mildly reduced excursion. There is trace regurgitation. There is mild stenosis. Pulmonic Valve Visualized portions of the pulmonic valve appear normal. There is trace pulmonic valve regurgitation. There is no evidence of pulmonic valve stenosis. Ascending Aorta The ascending aorta is mildly dilated (3.9 cm). Pericardium Pericardium appears normal. There is no pericardial effusion. Study Details Overall the study quality was adequate. Inderjit MELCHOR CV ECHO PROCEDURES Final Result * Annual BMP Blood Test (10/18/2023) Pathologist [facility] [place] [facility] HM Annual BMP Blood Test abstracted Result [facility] Provider HEALTH MAINTENANCE Final Result * Hemoglobin A1c (10/18/2023) [facility] Hemoglobin A1C 6.0 <=6.5 % Blood Venous blood specimen / Unknown Result [facility] Provider LAB BLOOD ORDERABLES Gabriella l Result * (ABNORMAL) Lipid panel (10/18/2023) [facility] LDL/HDL Ratio 4 0 - 4 Triglycerides 178(A) 0 - 150 mg/dL Cholesterol 139 0 - 200 mg/dL HDL 38(A) >=40 mg/dL LDL Cholesterol 66 0 - 100 mg/dL Blood Venous blood specimen / Unknown Result [facility] Provider LAB BLOOD ORDERABLES Gabriella l Result * Diabetes Foot Exam (08/31/2023) [facility] Diabetes: Annual Foot Exam abstracted Result [facility] Provider HEALTH MAINTENANCE Final Result * Urine Albumin Creatinine Ratio (07/31/2023) [facility] Urine Albumin Creatinine Ratio abstracted Result [facility] Provider HEALTH MAINTENANCE Final Result from Last 3 Months or Most Recently Relevant to Health Maintenance Insurance MEDICARE [facility] Care Teams Cleaning Supervisor Relationship Specialty Start Date End Date Margaret Camarena MD [address] [place] [id number] PCP - General 06/06/1997
--- OUTSIDE RECORDS SUMMARY | 2024-04-18 12:27 | XMS_ITS | Clinical Summary ---
Author Organization [facility] Address [address] [place] [address] Care Team Providers Care Director Of Special Events Name Role Phone Margaret Camarena MD Primary Care Provider [phone] Allergies No known active allergies Medications Medication Sig Dispensed Refills Start Date End Date Status SITagliptin (JANUVIA) 100 MG tablet Take 1 tablet (100 mg total) by mouth daily. 0 Active allopurinol (ZYLOPRIM) 100 MG tablet Take 1 tablet (100 mg total) by mouth daily. 0 Active lisinopril (PRINIVIL,ZESTRIL) tablet 20 mg Take 1 tablet (20 mg total) by mouth daily. 0 Active atenolol (TENORMIN) tablet 25 mg Take 1 tablet (25 mg total) by mouth daily. 0 Active metFORMIN (GLUCOPHAGE) tablet 500 mg Take 1 tablet (500 mg total) by mouth 2 (two) times a day with meals. 0 Active amLODIPine (NORVASC) tablet 5 mg Take 1 tablet (5 mg total) by mouth daily. 0 Active glipiZIDE (GLUCOTROL) tablet 5 mg Take 1 tablet (5 mg total) by mouth 2 (two) times a day before breakfast and dinner. 0 Active predniSONE (DELTASONE) 1 MG tablet Take 1 tablet (1 mg total) by mouth 2 (two) times a day. 0 Active tamsulosin (FLOMAX) 0.4 MG CAPS Take 1 capsule (0.4 mg total) by mouth daily. 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 06/27/2018 Obesity 12/06/2015 Nuclear sclerosis 06/10/2014 Overview: Overview: Dr Christine note 03/18/13 Benign prostatic hyperplasia 05/29/2013 Gout 04/20/2009 Mixed hyperlipidemia 05/17/2006 Benign essential hypertension 07/03/2005 Carpal tunnel syndrome 07/03/2005 Diabetes mellitus with neuro logical manifestations, uncontrolled 07/03/2005 Kidney stone 07/03/2005 Overview: Overview: 05/17 Family History Medical History Relation Name Comments Heart attack Father Diabetes Mother Pancreatic cancer Mother Relation Name Status Comments Father Mother Social History Tobacco Use Types Packs/Day Years Used Date Smoking Tobacco: Former Cigarettes Smokeless Tobacco: Never Alcohol Use Standard Drinks/Week Comments Yes 0 (1 standard drink = 0.6 oz pur e alcohol) Occasional social Sex and Gender Information Value Date Recorded Sex Assigned at Not on file Gender Identity Not on file Sexual Orientation Not on file Job Start Date Occupation Industry Not on file Not on file Not on file Last Filed Vital Signs Vital Sign Reading Time Taken Comments Blood Pressure 138/51 10/03/2022 2:35 PM EDT Pulse 69 10/03/2022 2:35 PM EDT Temperature 36.4 ??C (97.6 ??F) 10/03/2022 2:35 PM ED T Respiratory Rate - - Oxygen Saturation 99% 10/03/2022 2:35 PM EDT Inhaled Oxygen Concentration - - Weight 82.2 kg (181 lb 3.2 oz) 10/03/2022 2:35 P M EDT Height 167.6 cm (5' 6 ) 10/03/2022 2:35 PM EDT Body Mass Index 29.25 10/03/2022 2:35 PM EDT Plan of Treatment Health Maintenance Due Date Last Done Comments Depression Screening 1952 BMI Counseling 06/16/1957 Preventative Health Evaluation 06/16/1957 Shingrix-Zoster Vaccine (1 of 2) 06/16/1989 Fall Risk Assessment 06/16/2004 Pneumococcal Vaccine (2 of 2 - PCV) 01/23/2007 01/23/2006 RSV Adult > 60+ Yrs or (1 - 1-dose 75+ series) 06/16/2014 COVID-19 Vaccine ( - season) 2023 12/07/2020, 04/12/2020, 03/18/2020 Influenza Vaccine (#1) 2023 1, 02/26/2019, 01/14/2015, Additional history exists DTap / Tdap / Td (2 - Td or Tdap) 07/27/2024 07/27/2014 Hepatitis B Vaccines Aged Out No long er eligible based on patient's age to complete this topic RSV Ped < 20 months Aged Out No longe r eligible based on patient's age to complete this topic Care Teams Director Of Special Events Relationship Specialty Start Date End Date Margaret Camarena MD PCP - General Internal Medicine 01/14/20
--- OUTSIDE RECORDS SUMMARY | 2024-04-18 12:27 | XMS_ITS | Encounter Summary ---
Author Organization [facility] Address [address] [place] [address] Care Team Providers Care Printed Circuit Layout Taper Name Role Phone Margaret Camarena MD Primary Care Provider Reason for Visit * Reason Onset Date Comments Fitting for DME 03/24/2024 Faxed form from [facility] Encounter Details Date Type Department Care Team (Late Contact Info) Description 03/24/2024 Telephone Adult Medicine [address] [phone] Ailyn Durham LPN Fitting for DME (Faxed form from [facility]) Social History Tobacco Use Types Packs/Day Years Used Date Smoking Tobacco: Former Smokeless Tobacco: Never Alcohol Use Standard Drinks/Week Comments No 0 (1 standard drink = 0.6 oz pur e alcohol) Sex and Gender Information Value Date Recorded Sex Assigned at Not on file Legal Sex Male 1:12 PM EST Gender Identity Not on file Sexual Orientation Not on file documented as of this encounter Progress Notes * Ailyn Durham LPN - 03/24/2024 1:02 PM EST For meter test strips and lancets Called pt to see if he requested these supplies from [facility] He did not want these supplies Form stamped with denial and faxed back to [phone] documented in this encounter Plan of Treatment Upcoming Encounters Date Type Department Care Team (Late Contact Info) Description 05/21/2024 10:00 AM EDT Office Visit Adult Medicine [facility] [address] [place] [address] Inderjit Frey PA [address], [place] documented as of this encounter Visit Diagnoses Not on filedocumented in this encounter Care Teams Printed Circuit Layout Taper Relationship Specialty Start Date End Date Margaret Camarena MD [address] [place] [address] PCP - General 06/06/1997 documented as of this encounter
--- OUTSIDE RECORDS SUMMARY | 2024-04-18 12:27 | XMS_ITS | Encounter Summary ---
Author Organization [facility] Address [address] [address] Phone Care Team Providers Care Adz Worker Name Role Phone Margaret Camarena MD Primary Care Provider [phone] Reason for Visit * Reason Comments Chronic Kidney Disease Encounter Details Date Type Department Care Team ([facility] st Contact Info) Description 04/16/2024 8:45 AM EST Office Visit [facility] [address] [phone] Chanell Ireland ARNP [address] [address] Chronic kidney disease, stage 4 (severe) (HCC) (Primary Dx); Hypertension; Anemia in chronic kidney disease Social History Tobacco Use Types Packs/Day Years Used Date Smoking Tobacco: Former Cigarettes Passive Smoke Exposure: Never Smokeless Tobacco: Never Alcohol Use Standard Drinks/Week Comments Not Currently 0 (1 standard drink = 0.6 oz pur e alcohol) Sex and Gender Information Value Date Recorded Sex Assigned at Not on file Legal Sex Male 2:24 PM EDT Gender Identity Not on file Sexual Orientation Not on file documented as of this encounter Last Filed Vital Signs Vital Sign Reading Time Taken Comments Blood Pressure 142/62 04/16/2024 8:57 AM EST Pulse 51 04/16/2024 8:34 AM EST Temperature - - Respiratory Rate - - Oxygen Saturation 97% 04/16/2024 8:34 AM EST Inhaled Oxygen Concentration - - Weight 85.3 kg (188 lb) 04/16/2024 8:34 AM EST Height - - Body Mass Index 31.28 03/02/2023 9:38 AM EST documented in this encounter Progress Notes * Chanell Ireland ARNP - 04/16/2024 8:45 AM EST Images from the original note were not included. Patient Name: Roberto Sifuentes, Male Date of : 1940, 83 y.o. Date: 04/16/2024 Referring MD: No primary care provider on file. PCP: Margaret Camarena MD Reason For Visit: I had the pleasure of seeing your patient for follow up of CKD. The following portions of the patient's chart were reviewed in this encounter and updated as appropriate: Allergies Meds Problems Med Hx Surg Hx Fam Hx Constitutional: Negative for chills, fever, malaise/fatigue and weight loss. HENT: Negative for ear pain, hearing loss and tinnitus. Eyes: Negative for blurred vision, double vision, photophobia and pain. Respiratory: Negative for cough, hemoptysis, sputum production, shortness of breath and wheezing. Cardiovascular: Negative for chest pain, palpitations, orthopnea, claudication and leg swelling. Gastrointestinal: Negative for abdominal pain, diarrhea, nausea and vomiting. Genitourinary: Negative for dysuria, flank pain, frequency, hematuria and urgency. Musculoskeletal: Negative for myalgias. Skin: Negative for itching and rash. Neurological: Negative for dizziness, tingling and headaches. Psychiatric/Behavioral: Negative for depression. Full 13 point review of systems unremarkable except as noted above. 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 Nuclear sclerosis 06/10/2014 Overview: Dr Christine note 03/18/13 Obesity 12/06/2015 Polymyalgia rheumatica (HCC) 05/28/2021 Past Surgical History: Procedure Laterality Date KIDNEY SURGERY Social History Tobacco Use Smoking status: Former Types: Cigarettes Passive exposure: Never Smokeless tobacco: Never Substance Use Topics Alcohol use: Not Currently Family History Problem Relation Age of Onset Diabetes Mother Cancer Mother Heart attack Father Current Outpatient Medications Medication Sig Dispense Refill allopurinol (ZYLOPRIM) 100 MG tablet Take 100 mg by mouth in the morning and 100 mg in the evening. amLODIPine (NORVASC) 5 MG tablet TAKE 1 TABLET BY MOUTH 1 TIME EACH DAY. 90 tablet 1 famotidine (PEPCID) 20 MG tablet ferrous sulfate 325 (65 Fe) MG tablet Take 1 tablet by mouth 1 (one) time each day folic acid (FOLVITE) 1 MG tablet Take 1,000 mcg by mouth 1 (one) time each day glipiZIDE (GLUCOTROL XL) 5 MG 24 hr tablet Take 15 mg by mouth 1 (one) time each day 2 tablets in the am 1 tab in the pm Januvia 100 MG tablet Take 100 mg by mouth 1 (one) time each day lisinopril 20 MG tablet Take 20 mg by mouth 1 (one) time each day predniSONE (DELTASONE) 1 MG tablet Take 2 mg by mouth 1 (one) time each day Current Facility-Administered Medications Medication Dose Route Frequency Provider Last Rate Last Admin Epoetin Lino-epbx solution 20,000 Units 20,000 Units Injection q14 days Manuel Tomlin MD 20,000 Units at 03/11/24 0936 No Known Allergies Objective: Vitals: 04/16/24 0834 04/16/24 0857 BP: 144/70 142/62 BP Location: Right upper arm Patient Position: Sitting BP Cuff Size: Adult Pulse: 51 SpO2: 97% Weight: 188 lb (85.3 kg) Vitals reviewed. Constitutional: He is oriented to person, place, and time. He does not appear ill. No distress. HEENT: Mouth/Throat: Oropharynx is clear and moist. Eyes: Pupils are equal, round, and reactive to light. Neck: No JVD present. Cardiovascular: Regular rhythm. Murmur heard.He exhibits no edema. Pulmonary/Chest: Breath sounds normal. Abdominal: Soft. There is no abdominal tenderness. Musculoskeletal: Normal range of motion. Neurological: He is alert and oriented to person, place, and time. Skin: Skin is warm. Psychiatric: He has a normal mood and affect. No results found for: EGFRAFR GFR Calculated Date Value Ref Range Status 10/18/2023 29 (L) >60 Final Comment: This eGFR result was calculated using the CKD-EPI 2020 Creatinine Equation Chemistry Lab Units 04/11/24 1011 12/20/23 0000 10/18/23 1007 07/31/23 1024 05/25/23 1021 03/14/23 1037 02/13/23 0000 01/18/23 1518 01/16/23 0000 01/11/23 0000 CREATININE mg/dL 2.09* 2.18 2.20* 2.05* 2.31* 2.4* 2.60* 1.9* 1.78* 2.00* BUN mg/dL 42* 46 54* 46* 40* 41* 44* 36* 27* 26* BUN / CREAT RATIO 20 -- -- 22 17 -- -- -- -- -- EGFRNAFR -- -- 29* -- -- 27 24 35 37 32 GLUCOSE mg/dL 191* 182 105* 83 91 103* 97 229* 82 111 POTASSIUM mmol/L 4.7 4.5 4.6 4.5 4.7 4.3 4.4 5.2 5.3 4.7 SODIUM mmol/L 141 141 143 140 142 143 140 138 144 139 CO2 mmol/L 18* 21 23 19* 21 20* 21 20* 23 20 CHLORIDE mmol/L 107* 110 111* 107* 106 108* 108.0 107 113.0* 107.0 ALBUMIN g/dL 4.3 4.1 4.1 4.4 4.2 4.0 -- 3.6 -- -- Bone Mineral Lab Units 04/11/24 1011 12/20/23 0000 10/18/23 1007 07/31/23 1024 07/13/23 1025 05/25/23 1021 03/14/23 1037 02/13/23 0000 01/18/23 1518 CALCIUM mg/dL 8.6 9.5 9.4 9.2 -- 9.3 8.9 < > 8.6 PHOSPHORUS mg/dL 3.1 -- 3.9 3.9 -- 3.4 3.8 -- 3.2 PTH pg/mL -- -- -- -- 72* -- -- -- -- < > = values in this interval not displayed. CBC Lab Units 04/11/24 1011 03/24/24 1455 03/11/24 0935 02/25/24 0948 02/20/24 1029 01/11/24 1036 11/08/23 1642 10/18/23 1007 10/10/23 0920 09/06/23 1008 07/31/23 1024 WBC AUTO x10E3/uL 2.9* -- -- -- 2.7* 2.7* -- 3.6* -- 3.1* 2.5* RBC AUTO x10E6/uL 2.66* -- -- -- 2.57* 2.54* -- 2.8* -- 2.58* 2.68* MCV fL 103* -- -- -- 105* 107* -- 107.8* -- 106* 106* HEMATOCRIT % 27.5* -- -- -- 26.9* 27.2* -- 30.3* -- 27.3* 28.4* HEMOGLOBIN g/dL 9.0* 7.7 8.9 9.3 8.9* 9.0* < > 10.1* < > 9.0* 9.0* PLATELETS AUTO x10E3/uL 167 -- -- -- 131* 139* -- 159 -- 148* 133* < > = values in this interval not displayed. Urine Lab Units 07/31/23 1024 ALB MG/G CREAT UR mg/g creat 168* Urine Lab Units 02/13/23 0000 01/16/23 0000 PH UA 6.5 -- GLUCOSE UA mg/dL Negative -- KETONES UA Negative -- WBC UR -- 22 WBC UR HPF /HPF Full Field* -- RBC UR -- 2 RBC UR HPF /HPF 5-10* -- UROBILINOGEN UA Normal -- Iron Studies Lab Units 04/11/24 1011 01/11/24 1036 10/18/23 1007 07/13/23 1024 01/18/23 1518 FERRITIN ng/mL 389 477* 192 351 878* TIBC ug/dL 271 259 285 255 240 IRON SATURATION % 30 25 28 34 18* PLAN: Assessment & Plan 1. Chronic kidney disease, stage 4 (severe) (HCC) 2. Hypertension 3. Anemia in chronic kidney disease Kidney function is at baseline. He has chronic kidney disease due to: -diabetic kidney disease and hypertensive nephrosclerosis -residual kidney function loss from prior episode of acute kidney injury -nephron loss due to aging He developed previously VEENA due to acute tubular injury in the setting of cytokine release and hypotension associated with sepsis. He had also developed obstructive uropathy and required placement of left ureteral stent. Stents were removed on 03/14. He also developed subcapsular hematoma requiring blood transfusion and fluid resuscitation. He is anemic but there was no monoclonal gammopathy on the SPEP. Ferritin is on target. Hgb via CBC has improved from 7.7 to 9.0 He is on CRISTINO. Blood pressure is acceptable, trending above target PLAN Today in the office I gave him Retacrit 41684 units sc he tolerated well - Return in 4 weeks for Anemia Clinic Follow kidney function and electrolytes CBC and iron profile Low sodium diet Avoid NSAIDs/Decongestant medication Target BP <130/80 - consider BP med change Orders Placed This Encounter PTH, intact Renal function panel Urine Protein / creatinine ratio Urine Albumin / Creatinine Ratio CBC Epoetin Lino-epbx solution 20,000 Units Return in about 3 months (around 07/17/2024) for Next scheduled follow-up with Dr. Mora. J CARLOS Sevilla Cosigned by Kole Mora MD at 04/16/2024 1:08 PM EST documented in this encounter Plan of Treatment Upcoming Encounters Date Type Department Care Team (Late st Contact Info) Description 05/15/2024 1:00 PM EDT Clinical Support [facility] [address] [address] 07/17/2024 2:30 PM EDT Office Visit [facility] [address] [phone] Kole Mora MD [address] [address] Scheduled Orders Name Type Priority Associated Diagnoses Orde r Schedule PTH, intact Lab Routine Chronic kidney disease, stage 4 (severe) (HCC) Hypertension Anemia in chronic kidney disease Expected: 07/06/2024, Expires: 08/11/2024 Renal function panel Lab Routine Chronic kidney disease, stage 4 (severe) (HCC) Hypertension Anemia in chronic kidney disease Expected: 07/06/2024, Expires: 08/11/2024 Urine Protein / creatinine ratio Lab Routine Chronic kidney disease, stage 4 (severe) (HCC) Hypertension Anemia in chronic kidney disease Expected: 07/06/2024, Expires: 08/11/2024 Urine Albumin / Creatinine Ratio Lab Routine Chronic kidney disease, stage 4 (severe) (HCC) Hypertension Anemia in chronic kidney disease Expected: 07/06/2024, Expires: 08/11/2024 CBC Lab Routine Chronic kidney disease, stage 4 (severe) (HCC) Hypertension Anemia in chronic kidney disease Expected: 07/06/2024, Expires: 08/11/2024 documented as of this encounter Visit Diagnoses Diagnosis Chronic kidney disease, stage 4 (severe) (HCC)- Primary Hypertension Anemia in chronic kidney disease documented in this encounter Administered Medications Inactive Administered Medications - up to 3 most recent administrations Medication Order MAR Action Action Date Dose Rate Site Epoetin Lino-epbx solution 20,000 Units 20,000 Units, Injection, Once, On Sun04/16/24 at 0915, For 1 doseIndications:Chronic kidney disease, stage 4 (severe) (HCC),Anemia in chronic kidney disease Given 04/16/2024 9:06 AM EST 20,000 Units Left Arm documented in this encounter Care Teams Adz Worker Relationship Specialty Start Date End Date Margaret Camarena MD [address] [place] [phone] PCP - General Internal Medicine 10/24/21 documented as of this encounter
--- OUTSIDE RECORDS SUMMARY | 2024-04-18 12:27 | XMS_ITS | Encounter Summary ---
Author Organization [facility] Address [address] [address] Phone Care Team Providers Care Bottling Room Worker Name Role Phone Margaret Camarena MD Primary Care Provider [phone] Encounter Details Date Type Department Care Team (Late st Contact Info) Description 03/24/2024 3:00 PM EST Office Visit [facility] P. [address] [phone] Kole Mora MD [address] [address] Anemia in chronic kidney disease (Primary Dx); Chronic kidney disease, stage 4 (severe) (HCC); Hypertension; Obstructive uropathy, not otherwise specified; Microalbuminuria Social History Tobacco Use Types Packs/Day Years [...] Sign Reading Time Taken Comments Blood Pressure 138/64 03/24/2024 2:42 PM EST Pulse 57 03/24/2024 2:42 PM EST Temperature - - Respiratory Rate - - Oxygen Saturation 97% 03/24/2024 2:42 PM EST Inhaled Oxygen Concentration - - Weight 84.5 kg (186 lb 3.2 oz) 03/24/2024 2:42 P M EST Height - - Body Mass Index 30.99 03/02/2023 9:38 AM EST documented in this encounter Progress Notes * Kole Mora MD - 03/24/2024 3:00 PM EST [facility] Patient Name: Roberto Sifuentes, Male Date of : 1940, 83 y.o. Date: 03/24/2024 Referring MD: No primary care provider on file. PCP: Margaret Camarena MD Reason For Visit: I had the pleasure of seeing your patient for follow up of CKD. The following portions of the patient's chart were reviewed in this encounter and updated as appropriate: Allergies Meds Constitutional: Negative for chills, fever, malaise/fatigue and [...] Tomlin MD 20,000 Units at 03/11/24 0936 [START ON 03/25/2024] Epoetin Lino-epbx solution 20,000 Units 20,000 Units Injection Once No Known Allergies Objective: Vitals: 03/24/24 1442 BP: 138/64 Pulse: 57 SpO2: 97% Weight: 186 lb 3.2 oz (84.5 kg) Constitutional: He is oriented to person, place, and time. He does not appear ill. HEENT: Mouth/Throat: Oropharynx is clear and moist. [...] CKD-EPI 2020 Creatinine Equation Chemistry Lab Units 12/20/23 0000 10/18/23100607/31/23102305/25/23 1021 03/14/23 1037 02/13/23 0000 01/18/23 1518 01/16/23 0000 01/11/23 0000 CREATININE mg/dL 2.18 2.20* 2.05* 2.31* 2.4* 2.60* 1.9* 1.78* 2.00* BUN mg/dL 46 54* 46* 40* 41* 44* 36* 27* 26* BUN / CREAT RATIO -- -- 22 17 -- -- -- -- -- EGFRNAFR -- 29* -- -- 24 35 37 32 GLUCOSE mg/dL 182 105* 83 91 103* 97 229* 82 111 POTASSIUM mEq/L 4.5 4.6 4.5 4.7 4.3 4.4 5.2 5.3 4.7 SODIUM mEq/L 141 143 140 142 143 140 138 144 139 CO2 mmol/L 21 23 19* 21 20* 21 20* 23 20 CHLORIDE 110 111* 107* 106 108* 108.0 107 113.0* 107.0 ALBUMIN g/dL 4.1 4.1 4.4 4.2 4.0 -- 3.6 -- -- Bone Mineral Lab Units 12/20/23 0000 10/18/23100607/31/23102307/13/23 1025 05/25/23 1021 03/14/23 1037 02/13/23 0000 01/18/23 1518 09/15/22 0000 05/25/22 1113 CALCIUM mg/dL 9.5 9.4 9.2 -- 9.3 8.9 9.1 8.6 < > 9.1 PHOSPHORUS mg/dL -- 3.9 3.9 -- 3.4 3.8 -- 3.2 -- 4.0 PTH pg/mL -- -- -- 72* -- -- -- -- -- -- < > = values in this interval not displayed. CBC Lab Units 03/24/24 1455 03/11/24 0935 02/25/24 0948 02/20/24 1029 01/11/24 1036 11/08/23 1642 10/18/23 1007 10/10/23 0920 09/06/23 1008 07/31/23 1024 07/13/23 1024 WBC AUTO x10E3/uL -- -- -- 2.7* 2.7* -- 3.6* -- 3.1* 2.5* 2.3* RBC AUTO x10E6/uL -- -- -- 2.57* 2.54* -- 2.8* -- 2.58* 2.68* 2.62* MCV fL -- -- -- 105* 107* -- 107.8* -- 106* 106* 105* HEMATOCRIT % -- -- -- 26.9* 27.2* -- 30.3* -- 27.3* 28.4* 27.6* HEMOGLOBIN 7.7 8.9 9.3 8.9* 9.0* 9.6 10.1* < > 9.0* 9.0* 8.7* PLATELETS AUTO x10E3/uL -- -- -- 131* 139* -- 159 -- 148* 133* 165 < > = values in this interval [...] UA Normal -- Iron Studies Lab Units 01/11/24 1036 10/18/23 1007 07/13/23 1024 01/18/23 1518 FERRITIN ng/mL 477* 192 351 878* TIBC ug/dL 259 285 255 240 IRON SATURATION % 25 28 34 18* PLAN: Assessment & Plan 1. Anemia in chronic kidney disease 2. Chronic kidney disease, stage 4 (severe) ([facility]) 3. Hypertension 4. Obstructive uropathy, not otherwise specified 5. Microalbuminuria Kidney function is at baseline. He has [...] on the SPEP. Ferritin is on target. Hb is 7.7 He is on CRISTINO. Blood pressure is acceptable. PLAN Today in the office I gave him retacrit 90044 units sc he tolerated well Follow kidney function and electrolytes CBC and iron profile Low sodium diet Avoid NSAID Orders Placed This Encounter Renal funtion panel Ferritin Iron Panel (Fe, TIBC, TSAT) CBC and differential POCT hemoglobin Epoetin Lino-epbx solution 20,000 Units Return in 2 weeks (on 04/07/2024). Kole Mora MD documented in this encounter Plan of Treatment Upcoming Encounters Date Type Department Care Team (Late st Contact Info) Description 05/15/2024 1:00 PM EDT Clinical Support [facility] [address] [phone] 07/17/2024 2:30 PM EDT Office Visit [facility] [address] [phone] Kole Mora MD [address] [place] [phone] documented as of this encounter Procedures Procedure Name Priority Date/Time Associated Diagnosis Comments IMMATURE CELLS Routine 04/11/2024 10:11 AM EST IRON PANEL (FE, TIBC, TSAT) Routine 04/11/2024 10:11 AM EST Chronic kidney disease, stage 4 (severe) (HCC) CBC AND DIFFERENTIAL Routine 04/11/2024 10:11 AM EST Chronic kidney disease, stage 4 (severe) (HCC) FERRITIN Routine 04/11/2024 10:11 AM EST Chronic kidney disease, stage 4 (severe) (HCC) RENAL FUNCTION PANEL Routine 04/11/2024 10:11 AM EST Chronic kidney disease, stage 4 (severe) (HCC) POCT HEMOGLOBIN Routine 03/24/2024 2:55 PM EST Anemia in chronic kidney disease documented in this encounter Results * (ABNORMAL) Immature Cells (04/11/2024 10:11 AM EST) Myelocytes Relative 1(H) 0 - 0 % [facility] 04/11/2024 10:1 1 AM EST 04/11/2024 Kole Mora MD LAB BLOOD ORDERABLES Final Resul t [facility] [address] [place] [address] * (ABNORMAL) CBC and differential (04/11/2024 10:11 AM EST) WBC 2.9(L) 3.4 - 10.8 x10E3/uL [facility] RBC 2.66(LL) 4.14 - 5.80 x10E6/uL [facility] Comment: Macrocytes present. Anisocytosis present. Hemoglobin 9.0(L) 13.0 - 17.7 g/dL [facility] Hematocrit 27.5(L) 37.5 - 51.0 % [facility] MCV 103(H) 79 - 97 fL [facility] MCH 33.8(H) 26.6 - 33.0 pg [facility] MCHC 32.7 31.5 - 35.7 g/dL [facility] RDW 14.3 11.6 - 15.4 % [facility] Platelets 167 150 - 450 x10E3/uL [facility] Neutrophils Relative 29 Not Estab. % [facility] Lymphocytes Relative 44 Not Estab. % [facility] Monocytes 23 Not Estab. % [facility] Eosinophils Relative 2 Not Estab. % [facility] Basophils Relative 1 Not Estab. % [facility] Immature Cells Note [facility] Neutrophils Absolute 0.8(L) 1.4 - 7.0 x10E3/uL [facility] Lymphocytes Absolute 1.3 0.7 - 3.1 x10E3/uL [facility] Monocytes Absolute 0.7 0.1 - 0.9 x10E3/uL [facility] Eosinophils Absolute 0.1 0.0 - 0.4 x10E3/uL [facility] Basophils Absolute 0.0 0.0 - 0.2 x10E3/uL [facility] Comment: Note: [facility] Comment:Manual differential was performed. Blood (Blood, Venous) 04/11/2024 10:11 AM EST 04/11/2024 us Kole Mora MD LAB BLOOD ORDERABLES Final Resul t [facility] [address] [place] [address] * Iron Panel (Fe, TIBC, TSAT) (04/11/2024 10:11 AM EST) TIBC 271 250 - 450 ug/dL [facility] UIBC 190 111 - 343 ug/dL [facility] Iron 81 38 - 169 ug/dL [facility] Iron Saturation (TSat) 30 15 - 55 % [facility] Blood (Blood, Venous) 04/11/2024 10:11 AM EST 04/11/2024 us Kole Mora MD LAB BLOOD ORDERABLES Final Resul t Performing Organization Address City/[facility]/ZIP Co de Phone Number [facility] [address] [place] [address] * Ferritin (04/11/2024 10:11 AM EST) Ferritin 389 30 - 400 ng/mL [facility] Blood (Blood, Venous) 04/11/2024 10:11 AM EST 04/11/2024 us Kole Mora MD LAB BLOOD ORDERABLES Final Resul t Performing Organization Address [facility] de Phone Number [facility] [address] [place] [address] * (ABNORMAL) Renal funtion panel (04/11/2024 10:11 AM EST) Glucose 191(H) 70 - 99 mg/dL [facility] BUN 42(H) 8 - 27 mg/dL [facility] Creatinine 2.09(H) 0.76 - 1.27 mg/dL [facility] eGFR CKD-EPI CR 2020 31(L) >59 mL/min/1.7 3 [facility] BUN/Creatinine Ratio 20 10 - 24 [facility] Sodium 141 134 - 144 mmol/L [facility] Potassium 4.7 3.5 - 5.2 mmol/L [facility] Chloride 107(H) 96 - 106 mmol/L [facility] Bicarbonate (CO2) 18(L) 20 - 29 mmol/L [facility] Calcium 8.6 8.6 - 10.2 mg/dL [facility] Albumin 4.3 3.7 - 4.7 g/dL [facility] Phosphorus 3.1 2.8 - 4.1 mg/dL [facility] Blood (Blood, Venous) 04/11/2024 10:11 AM EST 04/11/2024 Kole Mora MD LAB BLOOD ORDERABLES Final Resul t [facility] [address] [place] [address] * POCT hemoglobin (03/24/2024 2:55 PM EST) Hemoglobin 7.7 Blood Capillary 03/24/2024 2 :55 PM EST Kole Mora MD POINT OF CARE TEST ORDERABLES Fi nal Result documented in this encounter Visit Diagnoses Diagnosis Anemia in chronic kidney disease- Primary Chronic kidney disease, stage 4 (severe) (HCC) Hypertension Obstructive uropathy, not otherwise specified Microalbuminuria documented in this encounter Care Teams Bottling Room Worker Relationship Specialty Start Date End Date Margaret Camarena MD [address] [place] [id number] PCP - General Internal Medicine 10/24/21 documented as of this encounter
--- OUTSIDE RECORDS SUMMARY | 2024-04-18 12:27 | XMS_ITS | Encounter Summary ---
Author Organization [facility] Address [address] [place] [address] Care Team Providers Care Quality Control Lab Technician Name Role Phone Margaret Camarena MD Primary Care Provider [phone] Encounter Details Date Type Department Care Team (Late Contact Info) Description 03/19/2024 Telephone [facility] Hematology Oncology [address] [place] [address] Ellen Jaimes MA Social History Tobacco Use Types Packs/Day Years [...] as of this encounter Progress Notes * Ellen Jaimes MA - 03/19/2024 3:14 PM EST Tried giving patient a call to scheduled appointment with Unable to leave voicemail documented in this encounter Plan of Treatment Upcoming Encounters Date Type Department Care Team (Late Contact Info) Description 05/21/2024 10:00 AM EDT Office Visit Adult Medicine [facility] [place] [address] [place] [phone] Inderjit Frey PA [address] [place] [address] documented as of this encounter Visit Diagnoses Not on filedocumented in this encounter Care Teams Quality Control Lab Technician Relationship Specialty Start Date End Date Margaret Camarena MD [address] [place] [address] PCP - General 06/06/1997 documented as of this encounter
--- OUTSIDE RECORDS SUMMARY | 2024-04-18 12:27 | XMS_ITS | Patient Health Record ---
Author Organization [facility] Address [address] [facility] [address] [place] [address] Care Team Providers Care Profile Shaper Operator Name Role Phone Camarena Margaret Primary Care Provider Unavailabl e Reason For Referral No Information Medications Medication SIG (Take, Route, Frequency, Duration) Notes Start Date End Date Status Lisinopril 20 MG 1 tablet Orally Once a day Active Januvia 100 MG 1 tablet Orally Once a day Active Allopurinol 100 MG 1 tablet Orally bid Active Terazosin HCl 5 MG 1 capsule at bedtime Orally Once a day Active Aspir-81 Active amLODIPine Besylate 5 MG 1 tablet Orally Once a day Active glipiZIDE ER 5 MG 1 tablet with food O rally Once a day Active Atenolol 25 MG 1 tablet Orally Once a day Active metFORMIN HCl ER 500 MG 1 tablet with ev ening meal Orally bid Active Problems Problem Type SNOMED Code ICD Code Onset Dates Problem Status W/U Status Risk Notes Problem [id number] Type 2 diabetes mellitus with diabetic polyneuropathy, unspecified whether group home insulin use (E11.42) Active confirmed Plan Of Treatment Pending Test Test Name Order Date X ray : Foot, left 3v 03/18/2020 Insurance Providers Payer Name Payer Address Payer Phone Subscriber Number Group Number Insured Name Patient Relationship to Insured Coverage Start Date Coverage End Date [employer] of [place] [address] [place] [phone] [id number] Roberto Sifuentes Self - patient is the insured [facility] and [facility] [address] [place] [phone] [id number] Roberto Sifuentes Self - patient is the insured Medical (General) History Medical History History ICD Code Proteinuria, unspecified R80.9 Age-related nuclear cataract, unspecifie d eye H25.10 Type 2 diabetes mellitus with diabetic c ataract E11.36 Chronic kidney disease, stage 3 unspecif ied N18.30 Type 2 diabetes mellitus wit h diabetic peripheral angiopathy without gangrene E11.51 Type 2 diabetes mellitus with other diab etic neurological complication E11.49 Thoracic aortic ectasia I77.810 Other cervical disc degeneration, unspec ified cervical region M50.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
--- OUTSIDE RECORDS SUMMARY | 2024-04-18 12:27 | XMS_ITS | Encounter Summary ---
Author Organization [facility] Address [address] [place] [address] Care Team Providers Care Compound Filler Name Role Phone Margaret Camarena MD Primary Care Provider [phone] Encounter Details Date Type Department Care Team (Late st Contact Info) Description 02/20/2024 Telephone [facility] - Main Lab [address] [facility] [place] [address] Aric Main Social History Tobacco Use Types Packs/Day Years [...] on file documented as of this encounter Plan of Treatment Upcoming Encounters Date Type Department Care Team (Late st Contact Info) Description 05/21/2024 10:00 AM EDT Office Visit Adult Medicine [facility] [address] [place] [address] Inderjit Frey PA [address] [place], [place] documented as of this encounter Visit Diagnoses Not on filedocumented in this encounter Care Teams Compound Filler Relationship Specialty Start Date End Date Margaret Camarena MD [address] [place] [address] PCP - General 06/06/1997 documented as of this encounter
== END 2024-04-18 11:40 | disposition home or self-care (01) ==
PROVIDERS: PCP Internal Medicine; Visit Provider Student in an Organized Health Care Education/Training Program
DX: D61.818 Other pancytopenia (principal); M35.3 Polymyalgia rheumatica; Z79.52 Long term (current) use of systemic steroids
CPT/HCPCS: 99215; G2211

== ENCOUNTER → 2024-04-18 10:53 | Outpatient (BNVA) | payer MEDICARE, BC, SELFPAY | PROVIDERS: PCP Internal Medicine; Visit Provider Student in an Organized Health Care Education/Training Program | DX: D61.818 Other pancytopenia (principal); M35.3 Polymyalgia rheumatica; Z79.52 Long term (current) use of systemic steroids | CPT/HCPCS: 99212 ==

== ENCOUNTER 2024-11-19 10:12 | Outpatient (REF) | payer MEDICARE, BC, SELFPAY ==
[2024-11-19 13:42] LABS: Hematocrit 27.1 % (42.0-52.0); Hemoglobin 8.7 g/dl (14.0-18.0); Imm Gran Abs Auto 0.07 X10*3/uL (0.00-0.03); Imm Gran Pct Auto 2.8 % (0.0-0.4); Lymphocytes Absolute Auto 1.2 X10*3/uL (1.2-4.9); MANUAL DIFF FLAG SCAN; Mean Corpuscular HGB Conc 32.1 g/dl (31.0-36.0); Mean Corpuscular Hemoglobin 33.7 pg (27.0-33.0); Mean Corpuscular Volume 105.0 fL (80.0-98.0); NRBC Abs Auto 0.000 X10*3/uL (0.0-0.012); NRBC Pct Auto 0.0 /100WBC (0.0-0.2); Platelet Count 145 X10*3/uL (160-400); Red Blood Count 2.58 X10*6/uL (4.60-5.80); SCAN SMEAR FLAG 1
[2024-11-19 13:45] LABS: White Blood Count 2.5 X10*3/uL (4.8-10.8)
[2024-11-19 13:52] LABS: Alanine Aminotransferase 24 U/L (0-40); Albumin Level 4.1 g/dL (3.5-5.0); Alkaline Phosphatase 71 U/L (39-117); Anion Gap 12 (12-20); Aspartate Amino Transferase 29 U/L (5-37); Blood Urea Nitrogen 40 mg/dL (9-16); Calcium 9.6 mg/dL (8.4-10.2); Carbon Dioxide 23 mmol/L (22-29); Chloride 110 mmol/L (96-108); Estimated Glomerular Filt Rate 34; Potassium 4.9 mmol/L (3.3-5.1); Sodium 140 mmol/L (135-145); Total Protein 7.5 g/dL (6.5-8.0)
[2024-11-21 18:33] LABS: PES - Abn Protein Band 1 0.3 g/dL (NONE DETECTED); Prot Elec - Albumin 3.9 g/dL (3.8-4.8); Prot Elec - Alpha1 0.3 g/dL (0.2-0.3); Prot Elec - Alpha2 0.9 g/dL (0.5-0.9); Prot Elec - Beta 1 0.4 g/dL (0.4-0.6); Prot Elec - Beta 2 0.3 g/dL (0.2-0.5); Prot Elec - Gamma 1.6 g/dL (0.8-1.7); Prot Elec - Total Protein 7.4 g/dL (6.1-8.1)
[2024-11-24 14:44] LABS: PEU-Protein Creat Ratio Rand 1.309 (0.025-0.148); PEU-Rand. Prot/Creat Ratio 1309 mg/g creat (25-148); PEU-Random Ur. Gamma Globulin 8 %; PEU-Random Urine A1 Globulin 5 %; PEU-Random Urine A2 Globulin 5 %; PEU-Random Urine Albumin 75 %; PEU-Random Urine Beta Globulin 7 %; PEU-Random Urine Creatinine 94 mg/dL (20-320); PEU-Random Urine Protein 123 mg/dL (5-25)
== END 2024-11-19 10:13 | disposition home or self-care (01) ==
LOC: HO.HMGCLDS 10:12
PROVIDERS: PCP Internal Medicine; Visit Provider Student in an Organized Health Care Education/Training Program
DX: D61.818 Other pancytopenia (principal); M35.3 Polymyalgia rheumatica; Z79.52 Long term (current) use of systemic steroids
CPT/HCPCS: 80053; 82570; 82784; 84156; 84165; 84166; 85025; 85652; 86140; 86334; 86335

== ENCOUNTER 2024-11-21 07:20 | Outpatient (AMB) | payer MEDICARE, BC, SELFPAY ==
--- OUTSIDE RECORDS SUMMARY | 2024-11-21 07:23 | XMS_ITS ---
[facility] Name [facility] Care Team Organization Name Specialty Phone Email Start Date End Da [facility] 10/01/2024
--- OUTSIDE RECORDS SUMMARY | 2024-11-21 07:23 | XMS_ITS | Clinical Summary ---
Author Organization [facility] Address [address] [place] [address] Care Team Providers Care Tinning Equipment Tender Name Role Phone Margaret Camarena MD Primary Care Provider [phone] Allergies No known active allergies Medications Medication [...] 69 10/03/2022 2:35 PM EDT Temperature 36.4 C (97.6 F) 10/03/2022 2:35 PM EDT Respiratory Rate - - Oxygen Saturation 99% [...] or (1 - 1-dose 75+ series) 06/16/2014 DTap / Tdap / Td (2 - Td or Tdap) 07/27/2024 07/27/2014 COVID-19 Vaccine ( season) 2024 12/07/2020, 04/12/2020, 03/18/2020 Influenza Vaccine (#1) 2024 , 02/26/2019, 01/14/2015, Additional history exists Hepatitis B Vaccines Aged Out No long er eligible based on patient's age to complete this topic RSV Ped < 20 months Aged Out No longe r eligible based on patient's age to complete this topic Care Teams Tinning Equipment Tender Relationship Specialty Start Date End Date Margaret Camarena MD PCP - General Internal Medicine 01/14/20
--- NOTE | 2024-11-21 07:42 | A.OFFVIS_ITS ---
Vital Signs 11/21/24 07:43 Height 5 ft 5 in Weight 187 lb 6 oz BMI 31.2 BP 160/88 H Blood Pressure Location Rt brachial Position Sitting Pulse 58 Pulse Source Pulse Oximeter Pulse Oximetry (%) 97 Oxygen Delivery Method Room Air Intake Visit Reasons: follow up Intake Note: Follow up care Flight Hostess Required: No Accompanied by: Self / Same As Patient Allergies No Known Allergies Allergy (Verified 11/21/24 07:48) HPI Comments Details: Patient is an 84-year-old male with hypertension, diabetes c/b CKD, Chronic anemia on EPO shots, Elevated paraprotein, BPH, PMR on chronic prednisone and gout who presents for follow-up Interval History: Patient last seen 04/18/24 with me - On Allopurinol 100mg and Prednisone 1mg daily - did not follow up with outdoor pursuits instructor - He made the appointment however did not go because he had COVID and did not make a follow up appointment for the appointment that he missed. When I discussed this with him he continues to iterate that he is currently following up with his relief docking master for his blood count and he is getting weekly shots and so he does not see the need to follow up with the outdoor pursuits instructor. I again told him that the shots that he is receiving from the hematologists are likely EPO shots and they are only for his anemia it would not explain his low white blood cell count or his low platelets. It would also not explain the abnormal protein that is in his blood. - With respect to his PMR symptoms patient notes that he has been feeling a little bit more achy on the 1 mg pill compared to the 2 mg pill however it has not been persistent. - No signs or symptoms of GCA - No gout flares Today - On Allopurinol 100mg and Prednisone 1mg daily - Followed up with Heme who said they were not concerned with labs - Doing well overall - No complaints of shoulder stiffness or hip stiffness - No AM stiffness in the hands Rheumatologic History: Diagnosed with PMR in 2019 and started on prednisone with complete resolution of symptoms. Has been slowly tapering prednisone over the past several years. No relapse in symptoms. Non crystal proven gout on allopurinol Current Rheumatology Medication(s): Allopurinol 100mg bid Prednisone 1mg daily [facility] Medical History (Updated 12/20/23 @ 13:55 by Bonita Moya MD) Pancytopenia Gout Cardiac murmur CKD (chronic kidney disease) stage 4, GFR 15-29 ml/min Surgical History History of carpal tunnel release Social History Household Members: Spouse Housing: House Are you a primary manager long term care to a significant other at home: No Do you presently have visiting nurse or other home services: No 75 years or older and lives alone: No Patient Tobacco Use Status: Former Tobacco user Years Smoked: Quit 35 years ago e-Cigarette/Vaping Use: Never Used service: No Current occupational status: retired Review of Systems Const Details: Review of Systems Constitutional: Denies fever, chills, weight loss ENT: Denies vision changes, eye pain or eye redness, dental caries, dry mouth GI: Denies nausea, vomiting, diarrhea, abdominal pain, change in BM Pulm: Denies SOB, VARGAS, hemoptysis, wheezing Cards: Denies chest pain, palpitations Skin: Denies Raynaud's, rash, nail changes, photosensitivity, EDITING COMPUTER PUBLISHER: Denies headaches, weakness, paresthesias, recurrent falls MSK: as per HPI All other systems reviewed and are unremarkable except noted above Physical Exam Exam Exam: Vital signs reviewed Physical Examination CONSTITUITIONAL Patient alert and cooperative. Well appearing and in no apparent painful distress MSK Hands * Right Hand: Able to make a fist. No swelling or tenderness to palpation of the MCPs, PIPs or DIPs. * Left Hand: Able to make a fist. No swelling or tenderness to palpation of the MCPs, PIPs or DIPs. * Herbedens nodes noted bilaterally Wrists * Right Wrist: Full ROM to flexion and extension. No swelling or TTP * Left Wrist: Full ROM to flexion and extension. No swelling or TTP Elbows * Right Elbow: Full ROM. No swelling or TTP. No TTP of the medial epicondyle. No TTP of the lateral epicondyle * Left Elbow: Full ROM. No swelling or TTP. No TTP of the medial epicondyle. No TTP of the lateral epicondyle Shoulders * Right shoulder: Decreased ROM. No swelling noted. No TTP of the AC joint. No TTP of the subacromial bursa. No TTP of the posterior shoulder * Left shoulder: Decreased ROM. No swelling noted. No TTP of the AC joint. No TTP of the subacromial bursa. No TTP of the posterior shoulder Knees * Right knee: Decreased ROM. No swelling noted. No TTP of the knee joint line. No TTP of pes anserine bursa * Left knee: Decreased ROM. No swelling noted. No TTP of the knee joint line. No TTP of pes anserine bursa. * Crepitations felt bilaterally Ankles * Right ankle: Good ankle dorsiflexion and plantar flexion. No swelling. No TTP of the ankle joint * Left ankle: Good ankle dorsiflexion and plantar flexion. No swelling. No TTP of the ankle joint Feet * Right foot: Negative squeeze test * Left foot: Negative squeeze test Tender points? * No tenderness to palpation of the bilateral trapezius, supraspinatus, anterior costochondral junctions, bilateral suboccipital muscle insertions SKIN No rashes Results Reviewed Results Reviewed: Laboratory Tests 12/20/23 11/19/24 10:30 11:07 WBC 2.5 L RBC 2.58 L Hgb 8.7 L Hct 27.1 L Plt Count 145 L D ESR 115 H Sodium 140 Potassium 4.9 Chloride 110 H Carbon Dioxide 23 BUN 40 H Creatinine 1.87 H AST 29 ALT 24 C-Reactive Protein 0.91 H 1.35 H Assessment & Plan Assessment & Plan (1) Polymyalgia rheumatica: Comment: onset 2019? Prednisone since 2019 Code(s): M35.3 - Polymyalgia rheumatica Category: Medical Plan: #PMR Patient is an 84 year old male with hx of PMR Sx currently in remission Note is made of his elevated ESR and CRP however this is confounded by his pancytopenia and EPO use in the setting of CKD Since he is symptomatically doing well I will stop prednisone and monitor Plan - Stop prednisone after completing the pills at home - RTC 6 months or sooner - Labs before visit: CBC, CMP, ESR, CRP (2) Pancytopenia: Code(s): D61.818 - Other pancytopenia Category: Medical Plan: #Pancytopenia Patient still has pancytopenia. Thankfully he is following up with Hematology. This time he says that hematology is not concerned about his blood work But he continues to follow up with them Plan I spent 30 minutes reviewing the record and labs, taking a history, examining the patient, discussing the treatment plan, and documenting in the medical record Orders: Orders Comprehensive Met. Panel 6 Months Z79.899 - Other local company intermodal truck driver (current) drug therapy C Reactive Protein 6 Months Z79.899 - Other custodial (current) drug therapy Complete Blood Count Auto Diff 6 Months Z79.899 - Other custodial (current) drug therapy Erythrocyte Sedimentation Rate 6 Months Z79.899 - Other custodial (current) drug therapy Coding Level of Care Code Est Pt Level 4 (11090) Complex EM visit Add On G2211 Diagnoses Polymyalgia rheumatica M35.3 Pancytopenia D61.818
[2024-11-21 07:43] VITALS: BP 160/88; PULSE 58; O2SAT 97; BMI 31.2
== END 2024-11-21 08:07 | disposition home or self-care (01) ==
LOC: HO.RHES 07:21
PROVIDERS: PCP Internal Medicine; Visit Provider Student in an Organized Health Care Education/Training Program
DX: M35.3 Polymyalgia rheumatica (principal); D61.818 Other pancytopenia
CPT/HCPCS: 99214; G2211

== ENCOUNTER → 2024-11-21 07:20 | Outpatient (BNVA) | payer MEDICARE, BC, SELFPAY | PROVIDERS: PCP Internal Medicine; Visit Provider Student in an Organized Health Care Education/Training Program | DX: M35.3 Polymyalgia rheumatica (principal); D61.818 Other pancytopenia; Z79.899 Other long term (current) drug therapy | CPT/HCPCS: 99212 ==